=== PATIENT | female | born 1995 ===

== ENCOUNTER 2024-02-21 20:07 | Inpatient (IN) ==
[2024-02-21 21:48] LABS: Hematocrit (blood only) 38.6 % (37.0-47.0); Hemoglobin 12.4 g/dl (12.0-16.0); Mean Corpuscular Hemoglobin 26.1 pg (25.0-34.0); Mean Corpuscular Hgb Conc 32.1 g/dL (32.0-36.0); Mean Corpuscular Volume 81.3 fL (80.0-100.0); Platelet Count 294 K/uL (130-400); RDW Standard Deviation 69.9 fL (36.4-46.3); Red Blood Count 4.75 M/uL (4.20-5.40); White Blood Count 11.75 K/ul (4.8-10.8)
[2024-02-21] MEDS: OXYTOCIN 30 UNITS/NSS 30 UNITS/500 ML BAG IV PRN (21:48)
[2024-02-21] MEDS: miSOPROStoL 200 MCG TAB PR ONE (22:16)
[2024-02-21] MEDS ORDERED: oxyCODONE/ACETAMINOPHEN 5mg/325mg TAB PO PRN (22:19)
[2024-02-21] MEDS ORDERED: HYDROCORTISONE ACETATE 25 MG SUPP PR PRN (22:19)
[2024-02-21] MEDS ORDERED: OXYTOCIN 30 UNITS/NSS 30 UNITS/500 ML BAG IV PRN (22:19)
--- NOTE | 2024-02-21 22:23 | Delivery Summary ---
Vaginal Delivery Summary Date of Service February 21, 2024 Vaginal Delivery Summary Patient is a 4 para 2. Admitted in active labor at 39 weeks 3 days gestation. On arrival to the maternity floor she was 8 cm dilated. Pushed out a live infant via direct occiput anterior position over an intact perineum. With IV Pitocin running the placenta was removed intact. Placenta was noted to be meconium stained. We used a pudendal block in order to repair a second- degree laceration. 2-0 Vicryl was used to approximate the vaginal mucosa out and to beyond the hymenal ring. A deep suture 2-0 Vicryl was used approximate the bulbocavernosus muscle. A separate deep sutures used approximate the perineal body. A running subcuticular sutures used approximate the perineal skin edges. Following this sponges were removed from the vagina. There was no hematoma palpable. 4 tablets of 200 mcg of Cytotec was placed rectally. There were no stitches through the rectum. Calculated blood loss was 100 mL.
[2024-02-21] MEDS: IBUPROFEN 600 MG TAB PO PRN (22:53)
[2024-02-21] MEDS: ACETAMINOPHEN 325 MG TAB PO PRN (22:53)
[2024-02-21] MEDS: DIPHTHER/TETAN/PERTUS Vaccine (Tdap, Adol/Adult) 0.5mL IM ONE (23:39)
[2024-02-21] MEDS: LIDOCAINE 1% LOCAL 20 ML VIAL INFIL PRN (23:39)
[2024-02-22] MEDS: BENZOCAINE 20% SPRY 85 APPLN/85 GM CAN EXT PRN (00:41)
[2024-02-22 00:46] VITALS: RESP 18
--- OUTSIDE RECORDS SUMMARY | 2024-02-22 02:28 | External Medical Summary | Summary of Care ---
Author Name Unknown Organization [facility] Address [address] [place] [address] Phone [phone] Care Team Providers Care Retail Loss Prevention Specialist Name Role Phone Natalia Guardado MD Primary Care Provider [phone] Encounter Details Date Type Department Care Team (Late st Contact Info) Description 02/21/2024 Telephone Gynecology/Obstetrics [facility] [address] [place] [address] Lele Medrano MD [address] [facility] [place] [address] Allergies No known active allergiesdocumented as of this encounter (statuses as of 02/21/2024) Medications [facility] Gummy 0.4-113.5 MG Oral Tablet Chewable Take 1 Tablet by mouth in the morning. Active Breast PumpIndications: Encounter for supervision of other normal in third trimester For lactating mother to breastfeed. 1 Each Active documented as of this encounter (statuses as of 02/21/2024) Active Problems Problem Noted Date Diagnosed Date Iron deficiency anemia 01/13/2024 Supervision of other normal , antepartu m 12/27/2023 Overview (12/27/2023): Transfer of care at 30 weeks Antepartum anemia complicating 024 Overview (12/27/2023): Third tri labs showed Hgb 9.0 Low ferritin, elevated TIBC No history of sickle cell. Sickle cell screen negative. Pt tolerated PO iron in past. Referral to IV iron. Mass of right axilla 12/27/2023 Overview (12/27/2023): Not new. Suspect accessory mammary tissue. Ultrasound ordered. Estimated Date of Delivery Comme nts Yes 02/25/2024 Based on last me nstrual period of 05/21/2023 documented as of this encounter (statuses as of 02/21/2024) Social History Tobacco Use Types Packs/Day Years Used Date Smoking Tobacco: Never Smokeless Tobacco: Never Alcohol Use Standard Drinks/Week Comments Not Currently 0 (1 standard drink = 0.6 oz pur e alcohol) socially PHQ-2 Answer Date Recorded PHQ Adult Total Score 0 11/30/2023 Hunger Vital Sign Answer Date Recorded Within the past 12 months, y ou worried that your food would run out before you got the money to buy more. Never true 11/30/19 24 Within the past 12 months, t he food you bought just didn't last and you didn't have money to get more. Never true 11/30/2023 Childcare Answer Date Recorded Do you feel overwhelmed with taking care of a child, family member or friend? No 11/30/2023 Does your family need help f inding childcare? (Household - for ages 0-17 years) Not on file 11/30/2023 Clothing Answer Date Recorded Have you been unable to get clothing when it was really needed? No 11/30/2023 Is your family able to get c lothes or diapers when needed? (Household - for ages 0-17 years) Not on file 11/30/2023 Personal Safety Answer Date Recorded Do you feel unsafe or have concerns for your saf ety? No 11/30/2023 Do you have concerns for you r family's safety? (Household - for ages 0-17 years) Not on file 11/30/2023 Utilities Answer Date Recorded Do you have trouble paying y our heating, water, or electric bill? No 11/30/2023 Is your family able to pay t he heat, water, or electric bill? (Household - for ages 0-17 years) Not on file 11/30/2023 Does your family have access to good internet? (Household - for ages 0-17 years) Not on file 11/30/2023 Employment Status Answer Date Recorded Are you unemployed or without regular income? No 11/30/2023 Does the household have a re gular source of income? (Household - for ages 0-17 years) Not on file 11/30/2023 Social Connections Answer Date Recorded How often do you feel lonely or isolated from th ose around you? Never 11/30/2023 Financial Resource Strain Answer Date R ecorded Do you have any trouble payi ng for your medications, or do you think you might in the future? No 11/30/2023 Does your family have troubl e paying for medicine? (Household - for ages 0-17 years) Not on file 11/30/2023 Transportation Needs Answer Date Record ed Do you have trouble getting a ride to medical visits or work? (Adult - for ages 18 years and over) Not on file 11/30/2023 Does your family have a hard time getting a ride to doctors visits? (Household - for ages 0-17 years) Not on file 11/30/2023 Has lack of transportation k ept you from medical appointments, meetings, work, or from getting things needed for daily living? Check all that apply. No 11/30/2023 Do you (or your family) have trouble finding or paying for a ride (transportation)? (Household - for ages 0-17 years) Not on file 11/30/2023 Housing Stability Answer Date Recorded Do you currently live in a s helter or have no steady place to sleep at night? No 11/30/2023 Do you think you are at risk of becoming homeless? (Adult - for ages 18 years and over) Not on file 11/30/2023 Does your family worry about paying for your home or becoming homeless? (Household - for ages 0-17 years) Not on file 1 Are you homeless or worried that you might be in the future? No 11/30/2023 Are you (or your family) khalida eless or worried that you might be in the future? (Household - for ages 0-17 years) Not on file Food Insecurity Answer Date Recorded Do you need food for this week? No 11/30/2023 Are you able to get enough f ood for your family? (Household - for ages 0-17 years) Not on file 11/30/2023 Does your family need food t his week? (Household - for ages 0-17 years) Not on file 11/30/2023 Do you always have enough fo od for your family? (Household - for ages 0-17 years) Not on file 11/30/2023 Estimated Date of Delivery Comme nts Yes 02/25/2024 Based on last me nstrual period of 05/21/2023 Sex and Gender Information Value Date Recorded Sex Assigned at Female 11/30/2023 4:30 PM EDT Legal Sex Female 12:09 PM EDT Gender Identity Female 11/30/2023 4:30 PM EDT Sexual Orientation Straight 11/30/2023 4: 30 PM EDT documented as of this encounter Miscellaneous Notes * Telephone Encounter - Josephine Gregory LPN - 02/21/2024 8:44 AM EST Pt calling in 39w3d stating she had a gush of fluid yesterday around 7:45pm and has been leaking since. She states she did not call iron melter provider as she could not find the number. She feels contractions are inconsistent. + movement. Advised would review with iron melter provider but they would likely want her to go to L&D. Pt has office visit today at 11:15am. Page sent to Dr. Medrano who advised pt to go to L&D. Pt aware and will head that way. I also made L&D aware that pt is coming. documented in this encounter Plan of Treatment Health Maintenance Due Date Last Done Comments HIV Screening 04/29/2010 Hepatitis C Screening 04/29/2013 DTap/Tdap Vaccines (1 - Tdap) 04/29/2014 Hepatitis B Vaccine (1 of 3 - 19+ 3-dose series) 04/29/2014 Pap Smear 04/29/2016 COVID-19 Vaccine (2023-2 5 season) 2023 Influenza Vaccine (FLU shot) (#1) 2023 01/02/2017, 01/05/2016 Depression Screening 11/29/2024 11/30/2023 MENINGOCOCCAL (MENACTRA/MENVEO) Aged Out 05/24/2015 No longer eligible b ased on patient's age to complete this topic HPV (Gardasil) Vaccine Aged Out No lo nger eligible based on patient's age to complete this topic Pneumococcal Vaccine: Pediatrics (0 to 5 Years) and At-Risk Patients (6 to 64 Years) Aged Out No longer eligible b ased on patient's age to complete this topic documented as of this encounter Goals Goal Patient Goal Type Associated Problems Recent Progress Patient-Stated? Author Reminders Care Plan OB Reminders No [place], Provider documented as of this encounter Medical Devices Not on filedocumented as of this encounter Additional Health Concerns Active Problems Noted Date Diagnosed Date OB Reminders 12/01/2023 documented as of this encounter Care Teams Retail Loss Prevention Specialist Relationship Specialty Start Date End Date Natalia Guardado MD [address] [place] [address] PCP - General Family Medicine 11/30/23 documented as of this encounter
--- OUTSIDE RECORDS SUMMARY | 2024-02-22 02:28 | External Medical Summary | Summary of Care ---
Author Name Unknown Organization [facility] Address [address] [place] [address] Phone [phone] Care Team Providers Care Vice President Biostatistics Name Role Phone Natalia Guardado MD Primary Care Provider [phone] Reason for Visit * Reason Comments Anemia Follow-Up Encounter Details Date Type Department Care Team (Late st Contact Info) Description 02/15/2024 9:30 AM [facility] Pharmacy Pharmacy, [place] [address] [place] [address] Clinic, Anemia [address] [place] [address] Iron deficiency anemia, unspecified iron deficiency anemia type* Allergies No known active allergiesdocumented as of this encounter (statuses as of 02/16/2024) Medications [facility] Gummy 0.4-113.5 MG Oral Tablet Chewable Take 1 Tablet by mouth in the morning. Active Breast PumpIndications: Encounter for supervision of other normal in third trimester For lactating mother to breastfeed. 1 Each Active documented as of this encounter (statuses as of 02/16/2024) Active Problems Problem Noted Date Diagnosed Date [...] as of this encounter (statuses as of 02/16/2024) Social History Tobacco Use Types Packs/Day Years [...] PM EDT documented as of this encounter Progress Notes * Yulissa Hernandez RPh - 02/16/2024 8:36 AM EST Patient Phone Numbers Called patient to review labs from 02/14/24. Spoke with patient. GA: 38w5d Estimated Date of Delivery: 02/25/24 Hgb: 11.5 g/dL TSAT: 19 % Ferritin: 125 ng/mL B12: 474 pg/mL FA: 13.5 ng/mL Patient is s/p Infed 1g x1 on 01/19/24. Hgb is within target range for the 3rd trimester. Iron studies within target range. Patient reportstolerating IV iron without issue. Fatigue is still present, but pica has subsided. Plan: No anemia pharmacological intervention at this time. Given adequacy of anemia labs, as well as proximity to delivery, Anemia Clinic will sign off at this time. Please re-refer if needed. Thank you for involving us in this patient's care. Yulissa Hernandez, PharmD Clinical Pharmacist - Respiratory Practitioner [facility] (P: [phone]) 02/16/2024 8:38 AM documented in this encounter Plan of Treatment Upcoming Encounters Date Type Department Care Team (Late st Contact Info) Description 02/21/2024 11:15 AM EST Office Visit Gynecology/Obstetrics [facility] [address] [place] [address] Becky Patel CRNP [address] [place] [address] Health Maintenance Due Date Last Done Comments HIV Screening 04/29/2010 Hepatitis C Screening 04/29/2013 DTap/Tdap Vaccines (1 - Tdap) 04/29/2014 Hepatitis B Vaccine (1 of 3 - 19+ 3-dose series) 04/29/2014 Pap Smear 04/29/2016 COVID-19 Vaccine ( - 2023-2 5 season) 2023 Influenza Vaccine (FLU shot) [...] Author Reminders Care Plan OB Reminders No Stevenson Jones documented as of this encounter Medical Devices Not on filedocumented as of this encounter Visit Diagnoses Diagnosis Iron deficiency anemia, unspecified iron deficiency anemia type- Primary documented in this encounter Additional Health Concerns Active Problems Noted Date Diagnosed Date OB Reminders 12/01/2023 documented as of this encounter Care Teams Vice President Biostatistics Relationship Specialty Start Date End Date Natalia Guardado MD [address] [place] [address] PCP - General Family Medicine 11/30/23 documented as of this encounter
[2024-02-22] MEDS: ACETAMINOPHEN W/CODEINE #3 1 TAB PO PRN (02:29)
--- OUTSIDE RECORDS SUMMARY | 2024-02-22 02:29 | External Medical Summary ---
Author Name Unknown Address Unknown Organization [id number]:LABORATORY [facility] - [address] [place] [address] Laboratory Report Ordering Provider Test Date Status LIZZIE ASH 02/14/2024 10:43:33 Final Observation Date Value Abnormality Reference (Units ) Status Folic Acid 02/14/2024 10:43:33 13.5 >4.5 (ng/ mL) Final Performing Location LABORATORY [facility] - [address] [place] [address]
--- OUTSIDE RECORDS SUMMARY | 2024-02-22 02:29 | External Medical Summary ---
Author Name Unknown Address Unknown Organization [id number]:LABORATORY [facility] - [address] [place] [address] Laboratory Report Ordering Provider Test Date Status LIZZIE ASH 02/14/2024 10:43:33 Final Observation Date Value Abnormality Reference (Units ) Status Retic, % (auto) 02/14/2024 10:43:33 3.97 Above high normal 0.80-1.90 (%) Final Reticulocytes, Absolute 02/14/2024 10:43:33 175.1 Above high normal 31.3-100.1 (K/uL) Final Reticulocyte fraction, immature 02/14/2024 10:43:33 27.3 Above high normal 2.5-20.6 (%) Final Reticulocyte HGB 02/14/2024 10:43:33 31.6 29.7-37.4 (pg) Final Performing Location LABORATORY [facility] - [address] [place] [address]
--- OUTSIDE RECORDS SUMMARY | 2024-02-22 02:29 | External Medical Summary | Summary of Care ---
Author Name Unknown Organization [facility] Address [address] [place] [address] Phone [phone] Care Team Providers Care Assistant Grocery Name Role Phone Natalia Guardado MD Primary Care Provider [phone] Reason for Visit * Reason Comments Return Visit Encounter Details Date Type Department Care Team (Late st Contact Info) Description 02/07/2024 9:15 AM EST Office Visit Gynecology/Obstetric s [facility] [address] [place] [address] Lynn Pa PA-C [address] [facility] [place] [address] Supervision of other normal , antepartum*; Antepartum anemia complicating ; Mass of right axilla Allergies No known active allergiesdocumented as of this encounter (statuses as of 02/07/2024) Medications [facility] Gummy 0.4-113.5 MG Oral Tablet Chewable Take 1 Tablet by mouth in the morning. Active Breast PumpIndications: Encounter for supervision of other normal in third trimester For lactating mother to breastfeed. 1 Each Active documented as of this encounter (statuses as of 02/07/2024) Active Problems Problem Noted Date Diagnosed Date [...] as of this encounter (statuses as of 02/07/2024) Social History Tobacco Use Types Packs/Day Years [...] 11/30/2023 Does the household have a re lar source of income? (Household - for ages [...] PM EDT documented as of this encounter Last Filed Vital Signs Vital Sign Reading Time Taken Comments Blood Pressure 112/72 02/07/2024 9:18 AM EST Pulse - - Temperature - - Respiratory Rate - - Oxygen Saturation - - Inhaled Oxygen Concentration - - Weight 93.4 kg (206 lb) 02/07/2024 9:18 AM EST Height - - Body Mass Index 36.49 01/05/2024 4:28 PM EST documented in this encounter Progress Notes * Lynn Pa PA-C - 02/07/2024 9:23 AM EST 37w3d S/p IV iron. Still feels tired, but has noticed less [place] cravings of ice and dirt. Increased discharge over last several weeks. No gush of fluid. Not soaking pad or need to wear pad.Feels just like increased moisture. Changes underwear d/t moisture. [place] irritated and itching at times she states feels like yeast infection d/t moisture at times. Vaginosis collected. Contractions a few days ago. Have since stopped. Desires cervical check. Due for GBS. Labor precautions. Lathe Tender Documentation Provider requested airport traffic controller. Name of airport traffic controller: Marjan Alexis MA RTC in 1 week Lynn Pa PA-C * Marjan Alexis CMA - 02/07/2024 9:18 AM EST 37w3d GBS swab today documented in this encounter Plan of Treatment Upcoming Encounters Date Type Department Care Team (Late st Contact Info) Description 02/08/2024 2:30 PM EST Pharmacy Pharmacy, [address] [place] [address] Clinic, [place] [address] [place] [address] Pending Results Name Type Priority Associated Diagnoses Date /Time GROUP B STREP CULTURE/PCR Lab Routine Supervision of other normal , antepartum 02/07/2024 9:44 AM EST VAGINOSIS PANEL, PCR Lab Routine Supervision of other normal , antepartum 02/07/2024 9:44 AM EST Scheduled Orders Name Type Priority Associated Diagnoses Orde r Schedule GROUP B STREP CULTURE/PCR Lab Routine Supervision of other normal , antepartum Expected: 02/07/2024, Expires: 02/06/2025 VAGINOSIS PANEL, PCR Lab Routine Supervision of other normal , antepartum Expected: 02/07/2024, Expires: 02/06/2025 Health Maintenance Due Date Last Done Comments [...] Author Reminders Care Plan OB Reminders No Mychart, Provider documented as of this encounter Medical Devices Not on filedocumented as of this encounter Visit Diagnoses Diagnosis Supervision of other normal , antepartum- Primary Antepartum anemia complicating Anemia, antepartum Mass of right axilla documented in this encounter Additional Health Concerns Active Problems Noted Date Diagnosed Date OB Reminders 12/01/2023 documented as of this encounter Care Teams Assistant Grocery Relationship Specialty Start Date End Date Natalia Guardado MD [address] [place] [address] PCP - General Family Medicine 11/30/23 documented as of this encounter
--- OUTSIDE RECORDS SUMMARY | 2024-02-22 02:29 | External Medical Summary | Summary of Care ---
Author Name Unknown Organization [facility] Address [address] [place] [address] Phone [phone] Care Team Providers Care Bottom Bleacher Name Role Phone Natalia Guardado MD Primary Care Provider [phone] Reason for Visit * Reason Comments Status Check Encounter Details Date Type Department Care Team (Late st Contact Info) Description 02/08/2024 2:30 PM [facility] Pharmacy Pharmacy, [place] [address], [place] [id number] Clinic, Anemia [address] [place] [address] Iron deficiency anemia, unspecified iron deficiency anemia type* Allergies No known active allergiesdocumented as of this encounter (statuses as of 02/08/2024) Medications [facility] Gummy 0.4-113.5 MG Oral Tablet Chewable Take 1 Tablet by mouth in the morning. Active Breast PumpIndications: Encounter for supervision of other normal in third trimester For lactating mother to breastfeed. 1 Each Active documented as of this encounter (statuses as of 02/08/2024) Active Problems Problem Noted Date Diagnosed Date [...] as of this encounter (statuses as of 02/08/2024) Social History Tobacco Use Types Packs/Day Years [...] as of this encounter Progress Notes * Guillermina Proctor RPh - 02/08/2024 1:06 PM EST CBCd, ferritin, iron screen, retic panel, B12, FA ordered for 02/14/24. Guillermina Proctor, PharmD, [facility] Clinical Pharmacist [facility] [address] Anemia Clinic (P: [phone]) 02/08/2024 1:07 PM * Gwendolyn Benton CPhT - 02/08/2024 10:06 AM EST Patient Phone Numbers Call to patient to schedule labs. Spoke with patient who verbalized understanding. Patient received Infed on 01/18. Labs due on 02/13. GA: 37w4d Estimated Date of Delivery: 02/25/24 Pharmacist - please place appropriate lab orders. Thank you, Gwendolyn Benton CPhT Dermatology Sales Representative II [facility] 02/08/2024,10:06 AM documented in this encounter Plan of Treatment Upcoming Encounters Date Type Department Care Team (Late st Contact Info) Description 02/14/2024 11:15 AM EST Office Visit Gynecology/Obstetrics [facility] [address] [place] [address] Nilson Lucero MD [address] [place] [address] 02/15/2024 9:30 AM EST Pharmacy Pharmacy, [place] [address] [place] [address] Clinic, Anemia [address] [place] [address] Scheduled Orders Name Type Priority Associated Diagnoses Orde r Schedule CBC WITH WBC DIFFERENTIAL Lab Routine Iron deficiency anemia, unspecified iron deficiency anemia type Expected: 02/14/2024, Expires: 01/08/2025 IRON SCREEN, INCLUDING TIBC Lab Routine Iron deficiency anemia, unspecified iron deficiency anemia type Expected: 02/14/2024, Expires: 01/08/2025 FERRITIN Lab Routine Iron deficiency anemia, unspecified iron deficiency anemia type Expected: 02/14/2024, Expires: 01/08/2025 RETICULOCYTE PANEL Lab Routine Iron deficiency anemia, unspecified iron deficiency anemia type Expected: 02/14/2024, Expires: 01/08/2025 FOLIC ACID Lab Routine Iron deficiency anemia, unspecified iron deficiency anemia type Expected: 02/14/2024, Expires: 01/08/2025 VITAMIN B12 Lab Routine Iron deficiency anemia, unspecified iron deficiency anemia type Expected: 02/14/2024, Expires: 01/08/2025 Health Maintenance Due Date Last Done Comments [...] documented as of this encounter Care Teams Bottom Bleacher Relationship Specialty Start Date End Date Natalia Guardado MD [address] [place] [address] PCP - General Family Medicine 11/30/23 documented as of this encounter
--- OUTSIDE RECORDS SUMMARY | 2024-02-22 02:29 | External Medical Summary ---
Author Name Unknown Address Unknown Organization [id number]:LABORATORY [facility] [address] - [address] [place] [address] Laboratory Report Ordering Provider Test Date Status LIZZIE ASH 02/14/2024 10:43:33 Final Observation Date Value Abnormality Reference (Units ) Status WBC, Total 02/14/2024 10:43:33 9.47 4.00-10.8 0 (K/uL) Final RBC 02/14/2024 10:43:33 4.37 3.85-5.15 (M/uL) Final Hemoglobin 02/14/2024 10:43:33 11.5 Below low normal 12 .0-15.3 (g/dL) Final HCT 02/14/2024 10:43:33 36.2 36.0-45.2 (%) Final MCV 02/14/2024 10:43:33 82.8 81.5-97.5 (fL) Final MCH 02/14/2024 10:43:33 26.3 27.0-34.0 (pg) Final MCHC 02/14/2024 10:43:33 31.8 32.0-36.0 (g/dL) Final RDW 02/14/2024 10:43:33 25.3 11.5-15.5 (%) Final Platelets 02/14/2024 10:43:33 383 140-400 (K /uL) Final MPV 02/14/2024 10:43:33 10.0 6.6-11.1 ( fL) Final Performing Location LABORATORY [facility] [address] 0 - [address] [place] [id number]
--- OUTSIDE RECORDS SUMMARY | 2024-02-22 02:29 | External Medical Summary ---
Author Name Unknown Address Unknown Organization K0G:LABORATORY [facility] [address] - [address] [place] [address] Laboratory Report Ordering Provider Test Date Status LIZZIE ASH 02/14/2024 10:43:33 Final Observation Date Value Abnormality Reference (Units ) Status SYNC LEUKOCYTES IN BLOOD BY AUTOMATED COUNT 02/14/2024 10:43:33 9.47 4.00-10.80 (K/uL) Final Segs 02/14/2024 10:43:33 75.7 Above high normal 40.0-75.0 (%) Final Lymphs % 02/14/2024 10:43:33 14.8 Below low normal 18.0-42.0 (%) Final Monos 02/14/2024 10:43:33 8.7 1.0-11.0 (%) Final Eosinophils 02/14/2024 10:43:33 0.5 0.0-6.0 (%) Final Basos 02/14/2024 10:43:33 0.3 0.0-2.0 (%) Final Absolute Segs 02/14/2024 10:43:33 7.17 1.80-7.70 (K/uL) Final Lymphs, absolute 02/14/2024 10:43:33 1.40 1.00-4.80 (K/ul) Final Monos, Abs 02/14/2024 10:43:33 0.82 0.00-1.10 (K/uL) Final Eos, Abs 02/14/2024 10:43:33 0.05 0.00-0.70 (K/uL) Final Basos, Abs 02/14/2024 10:43:33 0.03 0.00-0.20 (K/uL) Final Performing Location LABORATORY [facility] [address] - [address] [place] [address]
--- OUTSIDE RECORDS SUMMARY | 2024-02-22 02:29 | External Medical Summary ---
Author Name Unknown Address Unknown Organization K0G:LABORATORY [facility] - [address] [place] [id number] Laboratory Report Ordering Provider Test Date Status LIZZEI ASH 02/14/2024 10:43:33 Final Observation Date Value Abnormality Reference (Units ) Status Nucleated erythrocytes/100 leukocytes [Ratio] in Blood by Automated count 02/14/2024 10:43:33 Final Performing Location LABORATORY [facility] [address] - [address] [place] [id number]
--- OUTSIDE RECORDS SUMMARY | 2024-02-22 02:29 | External Medical Summary | Summary of Care ---
Author Name Unknown Organization [facility] Address [address] [place] [address] Phone [phone] Care Team Providers Care Yard Loader Operator Name Role Phone Natalia Guardado MD Primary Care Provider [phone] Reason for Visit * Reason Comments Return Visit Encounter Details Date Type Department Care Team (Late st Contact Info) Description 02/14/2024 11:15 AM EST Office Visit Gynecology/Obstetric [facility] [address] [place] [address] Nilson Lucero MD [address] [place] [address] Supervision of other normal , antepartum*; Antepartum anemia complicating ; Mass of right axilla Allergies No known active allergiesdocumented as of this encounter (statuses as of 02/14/2024) Medications [facility] Gummy 0.4-113.5 MG Oral Tablet Chewable Take 1 Tablet by mouth in the morning. Active Breast PumpIndications: Encounter for supervision of other normal in third trimester For lactating mother to breastfeed. 1 Each Active documented as of this encounter (statuses as of 02/14/2024) Active Problems Problem Noted Date Diagnosed Date [...] as of this encounter (statuses as of 02/14/2024) Social History Tobacco Use Types Packs/Day Years [...] Sign Reading Time Taken Comments Blood Pressure 124/84 02/14/2024 10:54 AM EST Pulse - - Temperature - - Respiratory Rate - - Oxygen Saturation - - Inhaled Oxygen Concentration - - Weight 94.3 kg (208 lb) 02/14/2024 10:54 AM EST Height 160 cm (5' 3") 02/14/2024 10:54 AM EST Body Mass Index 36.85 02/14/2024 10:54 AM EST documented in this encounter Progress Notes * Nilson Lucero MD - 02/14/2024 11:13 AM EST Pt doing well No complaints RTC 1 weeks documented in this encounter Nursing Notes * Sakina Denis LPN - 02/14/2024 10:55 AM EST 38w3d Swelling and itching in BL hands. Would like to schedule 41 week iol today. documented in this encounter Plan of Treatment Upcoming Encounters Date Type Department Care Team (Late st Contact Info) Description 02/15/2024 9:30 AM EST Pharmacy Pharmacy, [place] [address] [place] [address] Clinic, [place] [address] [place] [address] 02/21/2024 11:15 AM EST Office Visit Gynecology/Obstetrics [facility] [address] [place] [address] Becky Patel CRNP [address] [place] [address] Scheduled Orders Name Type Priority Associated Diagnoses Orde r Schedule BILE ACIDS, FRACTIONATED AND TOTAL Lab Routine Supervision of other normal , antepartum Antepartum anemia complicating Mass of right axilla Expected: 02/14/2024, Expires: 02/13/2025 Health Maintenance Due Date Last Done Comments [...] documented as of this encounter Care Teams Yard Loader Operator Relationship Specialty Start Date End Date Natalia Guardado MD [address] [place] [address] PCP - General Family Medicine 11/30/23 documented as of this encounter
--- OUTSIDE RECORDS SUMMARY | 2024-02-22 02:29 | External Medical Summary | Summary of Care ---
Author Name Unknown Organization [facility] Address [address] [place] [address] Phone [phone] Care Team Providers Care Cath Lab Name Role Phone Natalia Guardado MD Primary Care Provider [phone] Reason for Visit * Reason Comments Outpatient Testing Encounter Details Date Type Department Care Team (Late st Contact Info) Description 02/14/2024 10:40 AM EST Laboratory Laboratory, [facility] [address] [place] [address] [facility] [address] [place] [address] Iron deficiency anemia, unspecified iron deficiency anemia type Allergies No known active allergiesdocumented as of [...] PM EDT documented as of this encounter Plan of Treatment Upcoming Encounters Date Type Department Care Team (Late st Contact Info) Description 02/14/2024 11:15 AM EST Office Visit Gynecology/Obstetric [facility] [address] [place] [address] Nilson Lucero MD [address] [place] [address] Supervision of other normal , antepartum*; Antepartum anemia complicating ; Mass of right axilla 02/15/2024 9:30 AM EST Pharmacy Pharmacy, [place] [address] [facility] [place] [place] [address] Clinic, [place] [address] [place], [place] [id number] Pending Results Name Type Priority Associated Diagnoses Date /Time IRON SCREEN, INCLUDING TIBC Lab Routine Iron deficiency anemia, unspecified iron deficiency anemia type 02/14/2024 10:43 AM EST FERRITIN Lab Routine Iron deficiency anemia, unspecified iron deficiency anemia type 02/14/2024 10:43 AM EST RETICULOCYTE PANEL Lab Routine Iron deficiency anemia, unspecified iron deficiency anemia type 02/14/2024 10:43 AM EST FOLIC ACID Lab Routine Iron deficiency anemia, unspecified iron deficiency anemia type 02/14/2024 10:43 AM EST VITAMIN B12 Lab Routine Iron deficiency anemia, unspecified iron deficiency anemia type 02/14/2024 10:43 AM EST Health Maintenance Due Date Last Done Comments [...] Not on filedocumented as of this encounter Procedures Procedure Name Priority Date/Time Associated Diagnosis Comments DIFFERENTIAL, AUTOMATED Routine 02/14/2024 10:43 AM EST Iron deficiency anemia, unspecified iron deficiency anemia type CBC Routine 02/14/2024 10:43 AM EST Iron deficiency anemia, unspecified iron deficiency anemia type CBC Routine 02/14/2024 10:43 AM EST Iron deficiency anemia, unspecified iron deficiency anemia type DIFFERENTIAL, TECHNOLOGIST REVIEW Routine 02/14/2024 10:43 AM EST Iron deficiency anemia, unspecified iron deficiency anemia type documented in this encounter Results * DIFFERENTIAL, TECHNOLOGIST REVIEW (02/14/2024 10:43 AM EST) nRBCs 02/14/2024 10:58 AM EST [facility] [place] [facility] Blood Venous blood specimen / Unknown Venipuncture / Unknown 02/14/2024 10:43 AM EST 02/14/2024 10:43 AM EST us Guillermina Proctor [facility] LAB BLOOD ORDERABLES Final Res ult [facility] [place] [facility] [address] [place] [address] * (ABNORMAL) DIFFERENTIAL, AUTOMATED (02/14/2024 10:43 AM EST) Pathologist [facility] WBC 9.47 4.00 - 10.80 K/uL 02/14/2024 10:58 AM EST [facility] [place] [facility]10 Neutrophils % 75.7(H) 40.0 - 75.0 % 02/14/2024 10:58 AM EST [facility] [place] [facility] Lymphocytes % 14.8(L) 18.0 - 42.0 % 02/14/2024 10:58 AM EST [facility] [place] [facility]10 Monocytes % 8.7 1.0 - 11.0 % 02/14/2024 10:58 AM EST [facility] [place] [facility] Eosinophils % 0.5 0.0 - 6.0 % 02/14/2024 10:58 AM EST [facility] [place] [facility]10 Basophils % 0.3 0.0 - 2.0 % 02/14/2024 10:58 AM EST [facility] [place] [facility] Absolute Neutrophils 7.17 1.80 - 7.70 K/uL 02/14/2024 10:58 AM EST [facility] [place] [facility]10 Absolute Lymphocytes 1.40 1.00 - 4.80 K/ul 02/14/2024 10:58 AM EST [facility] [place] [facility] Absolute Monocytes 0.82 0.00 - 1.10 K/uL 02/14/2024 10:58 AM EST [facility] [place] [facility]10 Absolute Eosinophils 0.05 0.00 - 0.70 K/uL 02/14/2024 10:58 AM EST [facility] [place] [facility]10 Absolute Basophils 0.03 0.00 - 0.20 K/uL 02/14/2024 10:58 AM EST [facility] [place] [facility]10 Blood Venous blood specimen / Unknown Venipuncture / Unknown 02/14/2024 10:43 AM EST 02/14/2024 10:43 AM EST us Guillermina Proctor [facility] LAB BLOOD ORDERABLES Final Res ult [facility] [place] [facility] [address] [place] [address] * (ABNORMAL) CBC (02/14/2024 10:43 AM EST) WBC 9.47 4.00 - 10.80 K/uL 02/14/2024 10:58 AM EST [facility] [place] [facility]10 RBC 4.37 3.85 - 5.15 M/uL 02/14/2024 10:58 AM EST [facility] [place] [facility]10 HGB 11.5(L) 12.0 - 15.3 g/dL 02/14/2024 10:58 AM EST [facility] [place] [facility] HCT 36.2 36.0 - 45.2 % 02/14/2024 10:58 AM EST [facility] [place] [facility] MCV 82.8 81.5 - 97.5 fL 02/14/2024 10:58 AM EST [facility] [place] [facility] MCH 26.3 27.0 - 34.0 pg 02/14/2024 10:58 AM EST [facility] [place] [facility]10 MCHC 31.8 32.0 - 36.0 g/dL 02/14/2024 10:58 AM EST [facility] [place] [facility]10 RDW 25.3 11.5 - 15.5 % 02/14/2024 10:58 AM EST [facility] [place] [facility]10 PLT 383 140 - 400 K/uL 02/14/2024 10:58 AM EST [facility] [place] [facility] MPV 10.0 6.6 - 11.1 fL 02/14/2024 10:58 AM EST [facility] [place] [facility]10 Blood Venous blood specimen / Unknown Venipuncture / Unknown 02/14/2024 10:43 AM EST 02/14/2024 10:43 AM EST us Guillermina Esthela [facility] LAB BLOOD ORDERABLES Final Res ult [facility] [place] [facility]10 [address] [facility] [place] [address] documented in this encounter Visit Diagnoses Diagnosis Supervision of other normal , antepartum- Primary Antepartum anemia complicating Anemia, antepartum Mass of right axilla Iron deficiency anemia, unspecified iron deficiency anemia type documented in this encounter Additional Health Concerns Active Problems Noted Date Diagnosed Date OB Reminders 12/01/2023 documented as of this encounter Care Teams Cath Lab Relationship Specialty Start Date End Date Natalia Guardado MD [address] [place] [address] PCP - General Family Medicine 11/30/23 documented as of this encounter
--- OUTSIDE RECORDS SUMMARY | 2024-02-22 02:29 | External Medical Summary | Summary of Care ---
Author Name Unknown Organization [facility] Address [address] [place] [address] Phone [phone] Care Team Providers Care Wood Pole Treater Name Role Phone Natalia Guardado MD Primary Care Provider [phone] Encounter Details Date Type Department Care Team (Late st Contact Info) Description 02/10/2024 Orders Only PATIENT PORTAL DO NOT DELETE THIS DEPT USED BY [place] [address] Allergies No known active allergiesdocumented as of this encounter (statuses as of 02/10/2024) Medications [facility] Gummy 0.4-113.5 MG Oral Tablet Chewable Take 1 Tablet by mouth in the morning. Active Breast PumpIndications: Encounter for supervision of other normal in third trimester For lactating mother to breastfeed. 1 Each Active documented as of this encounter (statuses as of 02/10/2024) Active Problems Problem Noted Date Diagnosed Date [...] as of this encounter (statuses as of 02/10/2024) Social History Tobacco Use Types Packs/Day Years [...] 02/14/2024 11:15 AM EST Office Visit Gynecology/Obstetrics [facility] [address] [place] [address] Nilson Lucero MD [address] [place] [address] 02/15/2024 9:30 AM EST Pharmacy Pharmacy, [place] [address] [place], [place] [id number] Clinic, [place] [address] [place] [address] Health Maintenance Due Date Last Done Comments [...] documented as of this encounter Care Teams Wood Pole Treater Relationship Specialty Start Date End Date Natalia Guardado MD [address] [facility] [address] PCP - General Family Medicine 11/30/23 documented as of this encounter
--- OUTSIDE RECORDS SUMMARY | 2024-02-22 02:29 | External Medical Summary ---
Author Name Unknown Address Unknown Organization K01:LABORATORY [facility] [place] - [address] [place] [address] Laboratory Report Ordering Provider Test Date Status LIZZIE ASH 02/14/2024 10:43:33 Final Observation Date Value Abnormality Reference (Units ) Status Iron 02/14/2024 10:43:33 96 33-151 (ug/dL) Final Iron-binding capacity 02/14/2024 10:43:33 495 Above high normal 250-425 (ug/dL) Final Transferrin Sat % 02/14/2024 10:43:33 19 15-55 (%) Final Performing Location LABORATORY [facility] - [address] [place] [address]
--- OUTSIDE RECORDS SUMMARY | 2024-02-22 02:29 | External Medical Summary ---
Author Name Unknown Address Unknown Organization K01:LABORATORY [facility] - [address] [place] [address] Laboratory Report Ordering Provider Test Date Status LIZZIE ASH 02/14/2024 10:43:33 Final Observation Date Value Abnormality Reference (Units ) Status Vitamin B12 02/14/2024 10:43:33 321 900-3978 (pg/mL) Final Performing Location LAB[facility]ATORY [facility] - [address] [place] [address]
--- OUTSIDE RECORDS SUMMARY | 2024-02-22 02:29 | External Medical Summary ---
Author Name Unknown Address Unknown Organization K01:[facility] [place] [address] [facility] [place] [address] Laboratory Report Ordering Provider Test Date Status LIZZIE ASH 02/14/2024 10:43:33 Final Observation Date Value Abnormality Reference (Units ) Status Ferritin 02/14/2024 10:43:33 125 13-150 (ng /mL) Final Performing Location [facility] [place] [address] [place] [address]
--- OUTSIDE RECORDS SUMMARY | 2024-02-22 02:30 | External Medical Summary | Summary of Care ---
Author Name Unknown Organization [facility] Address [address] [place] [address] Phone [phone] Care Team Providers Care Educational Assistant Name Role Phone Natalia Guardado MD Primary Care Provider [phone] Reason for Visit * Reason Onset Date Comments Appointment 01/12/2024 Iron infusion Encounter Details Date Type Department Care Team (Late st Contact Info) Description 01/12/2024 Telephone Hematology/Oncology Treatment, [place] [address] [place] [address] Services, Scheduling [address] [place] [address] Appointment (Iron infusion) Allergies No known active allergiesdocumented as of this encounter (statuses as of 01/13/2024) Medications [facility] Gummy 0.4-113.5 MG Oral Tablet Chewable Take 1 Tablet by mouth in the morning. Active Breast PumpIndications: Encounter for supervision of other normal in third trimester For lactating mother to breastfeed. 1 Each Active documented as of this encounter (statuses as of 01/13/2024) Active Problems Problem Noted Date Diagnosed Date Supervision of other normal , antepartu m [...] as of this encounter (statuses as of 01/13/2024) Social History Tobacco Use Types Packs/Day Years [...] encounter Miscellaneous Notes * Telephone Encounter - Bianca Marcelino OSA - 01/12/2024 4:11 PM EST Patient calling in to schedule iron infusion. documented in this encounter Plan of Treatment Upcoming Encounters Date Type Department Care Team (Late st Contact Info) Description 01/20/2024 10:00 AM EST Pharmacy Pharmacy, [place] [address] [place] [address] Clinic, [place] [address] [place] [address] 01/20/2024 1:30 PM EST Imaging Radiology [facility] [address] [place] [address] 01/20/2024 2:15 PM EST Office Visit Gynecology/Obstetrics [facility] [address] [place] [address] Becky Patel CRNP [address] [place] [address] Health Maintenance Due Date Last Done Comments HIV Screening 04/29/2010 Hepatitis C Screening 04/29/2013 DTap/Tdap Vaccines (1 - Tdap) 04/29/2014 Hepatitis B Vaccine (1 of 3 - 19+ 3-dose series) 04/29/2014 Pap Smear 04/29/2016 COVID-19 Vaccine (1 - 2023-2 5 season) 2023 Influenza Vaccine [...] Author Reminders Care Plan OB Reminders No Kristianhart, Provider documented as of this encounter Medical Devices Not on filedocumented as of this encounter Additional Health Concerns Active Problems Noted Date Diagnosed Date OB Reminders 12/01/2023 documented as of this encounter Care Teams Educational Assistant Relationship Specialty Start Date End Date Natalia Guardado MD [address] [facility] [place], [place] [address] PCP - General Family Medicine 11/30/23 documented as of this encounter
--- OUTSIDE RECORDS SUMMARY | 2024-02-22 02:30 | External Medical Summary | Summary of Care ---
Author Name Unknown Organization [facility] Address [address] [place] [address] Phone [phone] Care Team Providers Care Anesthesiology Teacher Name Role Phone Natalia Guardado MD Primary Care Provider [phone] Reason for Visit * Reason Onset Date Comments Appointment 01/12/2024 Iron infusion Other 01/12/2024 InFed Encounter Details Date Type Department Care Team (Late st Contact Info) Description 01/12/2024 Telephone Hematology/Oncology Treatment, [place] [address] [place] [address] Services, Scheduling [address] [place] [address] Appointment (Iron infusion); Other (InFed) Allergies No known active allergiesdocumented as of [...] encounter Miscellaneous Notes * Telephone Encounter - Hlai Carvalho OSA - 01/13/2024 4:12 PM EST Patient called to schedule her iron infusion ordered by Lynn Pa. She is aware that we are awaiting Lynn's signature and will call her to schedule. Please contact [facility] at [phone] to schedule. Thank you. * Telephone Encounter - Teri Pa LPN - 01/13/2024 1:11 PM EST Order received for InFed [place] [phone] No prior authorization required Awaiting provider signature before scheduling patient. Per Guillermina Pa PA-C preferred administration date is on or after 01/21/2024. * Telephone Encounter - Bianca Marcelino OSA - 01/12/2024 4:11 PM EST Patient calling in to schedule iron infusion. documented in this encounter Plan of Treatment Upcoming Encounters Date Type Department Care Team (Late st Contact Info) Description 01/20/2024 10:00 AM EST Pharmacy Pharmacy, [place] [address] [place] [address] Clinic, An[place] [address] [place] [address] 01/20/2024 1:30 PM EST Imaging Radiology [facility] [address] [place] [address] 01/20/2024 2:15 PM EST Office Visit Gynecology/Obstetrics [facility] [address] [place] [address] Becky Patel CRNP [address] [place] [address] Health Maintenance Due Date Last Done Comments [...] documented as of this encounter Care Teams Anesthesiology Teacher Relationship Specialty Start Date End Date Natalia Guardado MD [address] [place] [address] PCP - General Family Medicine 11/30/23 documented as of this encounter
--- OUTSIDE RECORDS SUMMARY | 2024-02-22 02:30 | External Medical Summary | Summary of Care ---
Author Name Unknown Organization [facility] Address [address] [place] [address] Phone [phone] Care Team Providers Care Power Plant Operations Manager Name Role Phone Natalia Guardado MD Primary Care Provider Encounter Details Date Type Department Care Team (Late st Contact Info) Description 01/12/2024 Orders Only Gynecology/Obstetrics [facility] [address] [place] [address] Lynn Pa PA-C [address] [place] [address] Iron deficiency anemia, unspecified iron deficiency anemia type* Allergies No known active allergiesdocumented as of this encounter (statuses as of 01/12/2024) Medications [facility] Gummy 0.4-113.5 MG Oral Tablet Chewable Take 1 Tablet by mouth in the morning. Active Breast PumpIndications: Encounter for supervision of other normal in third trimester For lactating mother to breastfeed. 1 Each Active documented as of this encounter (statuses as of 01/12/2024) Active Problems Problem Noted Date Diagnosed Date [...] as of this encounter (statuses as of 01/12/2024) Social History Tobacco Use Types Packs/Day Years [...] Team (Late st Contact Info) Description 01/12/2024 4:00 PM EST Pharmacy Pharmacy, [place] [address] [place] [address] Clinic, An[place] [address] [place] [address] Iron deficiency anemia, unspecified iron deficiency anemia type* 01/20/2024 10:00 AM EST Pharmacy Pharmacy, [place] [address] [place] [address] Clinic, An[place] [address] [place] [address] 01/20/2024 1:30 PM EST Imaging Radiology [facility] [address] [place] [address] 01/20/2024 2:15 PM EST Office Visit Gynecology/Obstetric s [facility] [address] [place] [address] Becky Patel CRNP [address] [facility] [place] [address] Health Maintenance Due Date Last Done Comments [...] anemia, unspecified iron deficiency anemia type- Primary Iron deficiency anemia, unspecified iron deficiency anemia type- Primary documented in this encounter Additional Health Concerns Active Problems Noted Date Diagnosed Date OB Reminders 12/01/2023 documented as of this encounter Care Teams Power Plant Operations Manager Relationship Specialty Start Date End Date Natalia Guardado MD [address] [place] [address] PCP - General Family Medicine 11/30/23 documented as of this encounter
--- OUTSIDE RECORDS SUMMARY | 2024-02-22 02:30 | External Medical Summary | Summary of Care ---
Author Name Unknown Organization [facility] Address [address] [place] [address] Phone [phone] Care Team Providers Care Tutoring Clinician Name Role Phone Natalia Guardado MD Primary Care Provider [phone] Reason for Visit * Reason Onset Date Comments Appointment 01/12/2024 Iron infusion Other 01/12/2024 InFed Encounter Details Date Type Department Care Team (Late st Contact Info) Description 01/12/2024 Telephone Hematology/Oncology Treatment, [place] [address] [place] [phone] Services, Scheduling [address] [place] [address] Appointment (Iron infusion); Other (InFed) Allergies No known active allergiesdocumented as of this encounter (statuses as of 01/17/2024) Medications [facility] Gummy 0.4-113.5 MG Oral Tablet Chewable Take 1 Tablet by mouth in the morning. Active Breast PumpIndications: Encounter for supervision of other normal in third trimester For lactating mother to breastfeed. 1 Each Active documented as of this encounter (statuses as of 01/17/2024) Active Problems Problem Noted Date Diagnosed Date [...] as of this encounter (statuses as of 01/17/2024) Social History Tobacco Use Types Packs/Day Years [...] encounter Miscellaneous Notes * Telephone Encounter - Sara Chau OSA - 01/17/2024 8:52 AM EST Pt is scheduled and is aware * Telephone Encounter - Meseret Hawk RN - 01/14/2024 3:59 PM EST [place] is signed. Scheduling: please call patient to schedule 3 hour appt "infed" (Lynn Pa). Thanks! * Telephone Encounter - Hali Carvalho OSA - 01/13/2024 4:12 PM EST Patient called to schedule her iron infusion ordered by Lynn Pa. She is aware that we are awaiting Lynn's signature and will call her to schedule. Please contact [facility] at [phone] to schedule. Thank you. * Telephone Encounter - Teri Pa LPN - 01/13/2024 1:11 PM EST Order received for InFed [place] [phone] No prior authorization required Awaiting provider signature before scheduling patient. Per Guillermina Pa PA-C preferred administration date is on or after 01/21/2024. * Telephone Encounter - Bianca Marcelino OSA - 01/12/2024 4:11 PM EST Patient calling in to schedule iron infusion. documented in this encounter Plan of Treatment Upcoming Encounters Date Type Department Care Team (Late st Contact Info) Description 01/19/2024 11:15 AM EST Hem/Onc Treatment Hematology/Oncology Treatment, [place] [address] [place] [address] Lisa, Chair [address] [place] [address] 01/20/2024 10:00 AM EST Pharmacy Pharmacy, [place] [address] [place] [address] Clinic, Anemia [address] [place] [address] 01/20/2024 1:30 PM EST Imaging [facility] [address] 01/20/2024 2:15 PM EST Office Visit Gynecology/Obstetrics [facility] [address] [facility] [place] [address] Becky Patel CRNP [address] [place] [address] Health Maintenance Due Date Last Done Comments [...] documented as of this encounter Care Teams Tutoring Clinician Relationship Specialty Start Date End Date Natalia Guardado MD [address] [place] [address] PCP - General Family Medicine 11/30/23 documented as of this encounter
--- OUTSIDE RECORDS SUMMARY | 2024-02-22 02:30 | External Medical Summary ---
Author Name Unknown Address Unknown Organization K01:LABORATORY C - [address] [facility] [address] Laboratory Report Ordering Provider Test Date Status KELSEA,DIGNA 02/07/2024 09:44:13 Final Observation Date Value Abnormality Reference (Units ) Status Bacterial vaginosis [Interpretation] in Vaginal fluid Qualitative 02/07/2024 09:44:13 Negative Negative Final Negative for Bacterial Vagin osis. Correlate results with other clinical findings. Katerin sp DNA [Presence] in Vaginal fluid by Probe 02/07/2024 09:44:13 Negative Negative Final No Katerin species group RNA detected. Correlate results with other clinical findings. Katerin glabrata RNA [Presen ce] in Vaginal fluid by NAKUL with probe detection 02/07/2024 09:44:13 Negative Negative Final No Katerin glabrata RNA dete cted. Correlate results with other clinical findings. Trichomonas vaginalis DNA [P resence] in Vaginal fluid by Probe 02/07/2024 09:44:13 Negative Negative Final No Trichomonas vaginalis RNA detected. Performing Location [facility] - [address] [facility] [address]
--- OUTSIDE RECORDS SUMMARY | 2024-02-22 02:30 | External Medical Summary | Summary of Care ---
Author Name Unknown Organization [facility] Address [address] [place] [address] Phone [phone] Care Team Providers Care Senior Security Architect Name Role Phone Natalia Guardado MD Primary Care Provider Reason for Visit * Reason Comments IV Therapy Infed Encounter Details Date Type Department Care Team (Latest Contact Info) Description 01/19/2024 11:15 AM EST Hem/Onc Treatment Hematology/Oncology Treatment, [place] [address] [place] [address] Lisa, Chair [address] [place] [address] Iron deficiency anemia, unspecified iron deficiency anemia type* Allergies No known active allergiesdocumented as of this encounter (statuses as of 02/06/2024) Medications [facility] Gummy 0.4-113.5 MG Oral Tablet Chewable Take 1 Tablet by mouth in the morning. Active Breast PumpIndications: Encounter for supervision of other normal in third trimester For lactating mother to breastfeed. 1 Each Active documented as of this encounter (statuses as of 02/06/2024) Active Problems Problem Noted Date Diagnosed Date [...] as of this encounter (statuses as of 02/06/2024) Social History Tobacco Use Types Packs/Day Years [...] Sign Reading Time Taken Comments Blood Pressure 109/61 01/19/2024 12:50 PM EST Pulse 104 01/19/2024 12:50 PM EST Temperature 36.6 C (97.9 F) 01/19/2024 12:[address] Respiratory Rate 16 01/19/2024 12:50 PM EST Oxygen Saturation 99% 01/19/2024 12:50 PM EST Inhaled Oxygen Concentration - - Weight - - Height - - Body Mass Index - - documented in this encounter Nursing Notes * Hannah Fernandez RN - 01/19/2024 4:16 PM EST Error entry for nursing note 01/19/24 1609: disregard "VAD flushed with brisk blood return. 5FU CADD pump connected to VAD per protocol. " Edited note for 01/19/24 at 1609: PIV removed. * Hannah Fernandez, FAVIAN - 01/19/2024 4:09 PM EST Pt completed treatment without issues. VAD flushed with brisk blood return. 5FU CADD pump connectedto VAD per protocol. Goals: Pt will remain from injury. Possible barriers to meeting goals: ambulation with IV pole, risk of reaction Stability of the patient: Moderately stable - low risk of patient condition declining or worsening Summary regarding today's goals: Met: . Pt remained free from injury during treatment today. Discharged in stable condition. * Hannah Fernandez RN - 01/19/2024 12:10 PM EST Chair 8. Pt presents for Infed infusion with no acute concerns. Patient was oriented to the facility, treatment area, chair space/room, use of chair and call rodriguez, process of bringing patient in and assessment, and pharmacy process. Patient communicated understanding. PIV established; NSS Infusing. Safety and Risk for Injury Patient will remain free from injury. Ensure appropriate safety devices are available. Provide and maintain safe environment. Patient instructed on use of heat and massage functions where applicable. Patient shown how to operate the heat function of the chair and to alert nursing staff if the chair feels too warm. Patient instructed on the risk of potential gomez while using the heat function. documented in this encounter Plan of Treatment Upcoming Encounters Date Type Department Care Team (Late st Contact Info) Description 02/07/2024 9:15 AM EST [facility] [address] [place] [address] Lynn Pa PA-C [address] [place] [address] 02/08/2024 2:30 PM EST Pharmacy Pharmacy, [place] [address] [place], [place] [id number] Clinic, [facility] [address] [place] [address] Health Maintenance Due Date Last Done Comments [...] anemia type- Primary documented in this encounter Administered Medications Inactive Administered Medications - up to 3 most recent administrations Medication Order MAR Action Action Date Dose Rate Site Iron Dextran (Infed) 975 mg in NSS 250 mL INFUSION 975 mg, IV Piggyback, ONCE, 1 dose, On Wed01/19/24 at 1300, Administer over 1 Hours, - Administer iron dextran infusion bag over 1 hour - Monitor for infusion reactions with vitals at 30 minutes and 60 minutes after starting the infusion. - If patient develops sign/symptoms of reaction or vital signs outside normal limits: 1) STOP infusion 2) CONTACT physicianIndications:Iron deficiency anemia, unspecified iron deficiency anemia type Start Infusion 01/19/2024 12:20 PM EST 975 mg 274.5 mL/hr Iron Dextran (Infed) IV Push TEST DOSE 25 mg IV Push, Administer over 0.5 Minutes, -Educate patient on signs/symptoms of infusion reaction -Administer 25 mg test dose of iron dextran before infusion bag -Observe patient for signs/symptoms of reaction with vital signs before test dose, then at 15 minutes after administering the test dose -If patient tolerates test dose with no reaction, proceed with iron dextran infusion -HOLD infusion and contact physician immediately if patient reacts to test dose, ONCE, 1 dose, On Wed01/19/24 at 1245Indications:Iron deficiency anemia, unspecified iron deficiency anemia type Given 01/19/2024 11:48 AM EST 25 mg NSS infusion Intravenous, at 50 mL/hr, PRN, Starting on Wed01/19/24 at 1245, Until Wed01/19/24 at 2013, Maintenance lineIndications:Iron deficiency anemia, unspecified iron deficiency anemia type Start Infusion 01/19/2024 11:40 AM EST 50 mL/hr documented in this encounter Additional Health Concerns Active Problems Noted Date Diagnosed Date OB Reminders 12/01/2023 documented as of this encounter Care Teams Senior Security Architect Relationship Specialty Start Date End Date Natalia Guardado MD [address] [place] [address] PCP - General Family Medicine 11/30/23 documented as of this encounter
--- OUTSIDE RECORDS SUMMARY | 2024-02-22 02:30 | External Medical Summary | Summary of Care ---
Author Name Unknown Organization [facility] Address [address] [place] [address] Phone [phone] Care Team Providers Care Wax Room Supervisor Name Role Phone Natalia Guardado MD Primary Care Provider [phone] Reason for Visit * Reason Onset Date Comments Appointment 01/12/2024 Iron infusion Other 01/12/2024 InFed Encounter Details Date Type Department Care Team (Late st Contact Info) Description 01/12/2024 Telephone Hematology/Oncology Treatment, [place] [address] [place] [address] Services, Scheduling [address] [place] [address] Appointment (Iron infusion); Other (InFed) Allergies No [...] encounter Miscellaneous Notes * Telephone Encounter - Teri Pa LPN - 01/13/2024 1:11 PM EST Order received for InFed [place] [id number] No prior authorization required Awaiting provider signature [...] Description 01/20/2024 10:00 AM EST Pharmacy Pharmacy, [place] [address] [place] [address] [facility] [address] [facility] [address] 01/20/2024 1:30 PM EST [facility] [place] [facility] [place] [address] 01/20/2024 2:15 PM EST Office Visit [facility]necology/Obstetrics [facility] [place] [address] Becky Patel CRNP [address] [facility] [place] [address] Health Maintenance Due Date Last Done Comments [...] documented as of this encounter Care Teams Wax Room Supervisor Relationship Specialty Start Date End Date Natalia Guardado MD 200 [facility] [place] [address] PCP - General Family Medicine 11/30/23 documented as of this encounter
--- OUTSIDE RECORDS SUMMARY | 2024-02-22 02:30 | External Medical Summary | Summary of Care ---
Author Name Unknown Organization [facility] Address [address] [place] [address] Phone [phone] Care Team Providers Care Department Of Sociology Chair Name Role Phone Natalia Guardado MD Primary Care Provider [phone] Reason for Visit * Reason Onset Date Comments Appointment 01/12/2024 Iron infusion Encounter Details Date Type Department Care Team (Late st Contact Info) Description 01/12/2024 Telephone Hematology/Oncology Treatment, [place] [address] [place] [address] Services, Scheduling [address] [place] [address] Appointment (Iron infusion) Allergies No known active [...] Description 01/20/2024 10:00 AM EST Pharmacy Pharmacy, [place] [address] [place] [address] Clinic, [place] [address] [place] [address] 01/20/2024 1:30 PM EST Imaging Radiology [facility] [address] [place] [address] 01/20/2024 2:15 PM EST Office Visit Gynecology/Obstetrics [facility] [address] [place] [address] Becky Patel CRNP [address] [place] [address] Health Maintenance Due Date Last Done Comments [...] documented as of this encounter Care Teams Department Of Sociology Chair Relationship Specialty Start Date End Date Natalia Guardado MD [address] [facility] [place], [place] [address] PCP - General Family Medicine 11/30/23 documented as of this encounter
--- OUTSIDE RECORDS SUMMARY | 2024-02-22 02:30 | External Medical Summary ---
Author Name Unknown Address Unknown Organization K01:[facility] [address] [place] [address] Laboratory Report Ordering Provider Test Date Status DIGNA ENAMORADO 02/07/2024 09:44:13 Final Observation Date Value Abnormality Reference (Units ) Status Streptococcus agalactiae DNA [Presence] in Specimen by NAKUL with probe detection 02/07/2024 09:44:13 Negative Negative Final No Group B Streptococcus det ected by culture-enhanced PCR (amplified probe). GBS GBSCT - [facility] 02/07/2024 09:44:13 0.0 Final GBS SPCCT - [facility] 02/07/2024 09:44:13 30.7 Final Performing Location [facility] - [address] [place] [address]
--- OUTSIDE RECORDS SUMMARY | 2024-02-22 02:30 | External Medical Summary | Summary of Care ---
Author Name Unknown Organization [facility] Address [address] [place] [address] Phone [phone] Care Team Providers Care Saddle Maker Name Role Phone Natalia Guardado MD Primary Care Provider [phone] Reason for Visit * Reason Onset Date Comments Appointment 01/12/2024 Iron infusion Other 01/12/2024 InFed Encounter Details Date Type Department Care Team (Late st Contact Info) Description 01/12/2024 Telephone Hematology/Oncology Treatment, [place] [address] [place] [address] Services, Scheduling [address] [place] [address] Appointment (Iron infusion); Other (InFed) Allergies No [...] encounter Miscellaneous Notes * Telephone Encounter - Meseret Hawk RN - 01/14/2024 3:59 PM EST [place] is signed. Scheduling: please call patient to schedule 3 hour appt "infed" (Lynn Pa). Thanks! * Telephone Encounter - Hali Carvalho OSA - 01/13/2024 4:12 PM EST Patient called to schedule her iron infusion ordered by Lynn Pa. She is aware that we are awaiting Lynn's signature and will call her to schedule. Please contact [facility] at [phone] to schedule. Thank you. * Telephone Encounter - Teri Pa LPN - 01/13/2024 1:11 PM EST Order received for InFed [place] [phone] No prior authorization required Awaiting provider signature [...] Description 01/20/2024 10:00 AM EST Pharmacy Pharmacy, [place] [address] [place] [address] Clinic, [place] [address] [place] [address] 01/20/2024 1:30 PM EST Imaging Radiology [facility] [address] [facility] [place] [address] 01/20/2024 2:15 PM EST Office Visit Gynecology/Obstetrics [facility] [address] [facility] [place] [address] Becky Patel CRNP [address] [place] [address] Health Maintenance Due Date Last Done Comments [...] documented as of this encounter Care Teams Saddle Maker Relationship Specialty Start Date End Date Natalia Guardado MD [address] [place] [address] PCP - General Family Medicine 11/30/23 documented as of this encounter
--- OUTSIDE RECORDS SUMMARY | 2024-02-22 02:30 | External Medical Summary | Summary of Care ---
Author Name Unknown Organization [facility] Address [address] [place] [address] Phone [phone] Care Team Providers Care Stylist Assistant Name Role Phone Natalia Guardado MD Primary Care Provider [phone] Reason for Visit * Reason Comments IV Therapy Infed Encounter Details Date Type Department Care Team (Latest Contact Info) Description 01/19/2024 11:15 AM EST Hem/Onc Treatment Hematology/Oncology Treatment, [place] [address] [place] [address] Lisa, Chair [address] [place] [address] Iron deficiency anemia, unspecified iron deficiency anemia type* Allergies No known active allergiesdocumented as of this encounter (statuses as of 01/19/2024) Medications CVS Gummy 0.4-113.5 MG Oral Tablet Chewable Take 1 Tablet by mouth in the morning. Active Breast PumpIndications: Encounter for supervision of other normal in third trimester For lactating mother to breastfeed. 1 Each Active documented as of this encounter (statuses as of 01/19/2024) Active Problems Problem Noted Date Diagnosed Date [...] as of this encounter (statuses as of 01/19/2024) Social History Tobacco Use Types Packs/Day Years [...] Description 01/20/2024 10:00 AM EST Pharmacy Pharmacy, [place] [address] [place] [address] Clinic, [place] [address] [place] [address] 01/20/2024 1:30 PM EST Imaging Radiology [facility] [address] [facility] [place] [address] 01/20/2024 2:15 PM EST Office Visit Gynecology/Obstetrics [facility] [address] [facility] [place] [address] Becky Patel CRNP [address] [place] [address] Health Maintenance Due Date Last Done Comments [...] Primary documented in this encounter Administered Medications Active Administered Medications - up to 3 most recent administrations Medication Order MAR Action Action Date Dose Rate Site EPINEPHrine 1 MG/ML inj 0.3 mg 0.3 mg, Intramuscular, ONCE PRN Other, Hypersensitivity Reaction or Anaphylaxis, Starting on Wed01/19/24 at 1139, Until Anu 01/20/24 at 1138, For 24 hoursIndications:Iron deficiency anemia, unspecified iron deficiency anemia type Famotidine (Pepcid) inj 20 mg 20 mg, IV Push, ONCE PRN Other, Hypersensitivity Reaction, Starting on Wed01/19/24 at 1139, Until Anu 01/20/24 at 1138, For 24 hours, Give IV push over 2 minutes.Indications:Iron deficiency anemia, unspecified iron deficiency anemia type hEParin 100 UNIT/ML Lock Flush inj 500 Units 500 Units (5 mL), IV Lock, PRN Other, IV Flush, Starting on Wed01/19/24 at 1139, Until Anu 01/20/24 at 1138, For 24 hours, Do not flush if lock, PICC, or central line not in place; IV infusing or unable to flush.Indications:Iron deficiency anemia, unspecified iron deficiency anemia type Hydrocortisone Sod Suc (PF) (Solu-Cortef) inj 100 mg 100 mg, IV Push, ONCE PRN Other, Hypersensitivity Reaction, Starting on Wed01/19/24 at 1139, Until Anu 01/20/24 at 1138, For 24 hoursIndications:Iron deficiency anemia, unspecified iron deficiency anemia type NSS infusion Intravenous, at 50 mL/hr, PRN, Starting on Wed01/19/24 at 1245, Until Discontinued, Maintenance lineIndications:Iron deficiency anemia, unspecified iron deficiency anemia type Start Infusion 01/19/2024 11:40 AM EST 50 mL/hr oxygen GAS Inhalation, OXYGEN, First dose on Wed01/19/24 at 1600, Until Discontinued, Device/Managed by: Low Flow Device, Goal SPO2 (%): 91-95, Starting Device: Nasal Cannula, Initial Flow Rate (LPM): 2, Lowest Support: Nasal Cannula: Flow 0-6 LPM. Titrate up/down by 1 LPM., Higher Support: Non-Rebreather (NRB) Mask: Minimum of 10 LPM. Titrate to maintain bag inflation., Titration Interval: Q2 minutes and as needed., Notify Provider: For sudden DECREASE in resting SPO2 to less than 85% and when escalating delivery device., Wean patient off Oxygen when the oxygen saturation is greater than or equal to 93%Indications:Iron deficiency anemia, unspecified iron deficiency anemia type sodium chloride 0.9 % flush central line 10 mL 10 mL, IV Push, PRN Other, IV Flush, Starting on Wed01/19/24 at 1139, Until Wed01/20/24 at 1138, For 24 hours, Do not flush if lock, PICC, or central line not in place; IV infusing or unable to flush.Indications:Iron deficiency anemia, unspecified iron deficiency anemia type Inactive Administered Medications - up to 3 [...] Given 01/19/2024 11:48 AM EST 25 mg documented in this encounter Additional Health Concerns Active Problems Noted Date Diagnosed Date OB Reminders 12/01/2023 documented as of this encounter Care Teams Stylist Assistant Relationship Specialty Start Date End Date Natalia Guardado MD [address] [place] [address] PCP - General Family Medicine 11/30/23 documented as of this encounter
--- OUTSIDE RECORDS SUMMARY | 2024-02-22 02:30 | External Medical Summary | Summary of Care ---
Author Name Unknown Organization [facility] Address [address] [place] [address] Phone [phone] Care Team Providers Care Lab Aid Name Role Phone Natalia Guardado MD Primary Care Provider [phone] Encounter Details Date Type Department Care Team (Late st Contact Info) Description 01/14/2024 Orders Only Pharmacy, [place] [address] [place] [address] Guillermina Proctor, [facility] [address] [place] [address] Allergies No known active allergiesdocumented as of this encounter (statuses as of 01/14/2024) Medications CVS Gummy 0.4-113.5 MG Oral Tablet Chewable Take 1 Tablet by mouth in the morning. Active Breast PumpIndications: Encounter for supervision of other normal in third trimester For lactating mother to breastfeed. 1 Each Active documented as of this encounter (statuses as of 01/14/2024) Active Problems Problem Noted Date Diagnosed Date [...] as of this encounter (statuses as of 01/14/2024) Social History Tobacco Use Types Packs/Day Years [...] 4:30 PM EDT Sexual Orientation Straight 11/30/2023 4 :30 PM EDT documented as of this encounter Plan of Treatment Upcoming Encounters Date Type Department Care Team (Late st Contact Info) Description 01/20/2024 10:00 AM EST Pharmacy Pharmacy, [place] [address] [place] [address] Clinic, [facility] [address] [place] [address] 01/20/2024 1:30 PM EST Imaging Radiology [facility] [address] [place] [address] 01/20/2024 2:15 PM EST Office Visit Gynecology/Obstetrics [facility] [address] [place] [address] Becky Patel CRNP 132 [facility] [place] [address] Health Maintenance Due Date Last Done Comments [...] documented as of this encounter Care Teams Lab Aid Relationship Specialty Start Date End Date Natalia Guardado MD [address] [place] [address] PCP - General Family Medicine 11/30/23 documented as of this encounter
--- OUTSIDE RECORDS SUMMARY | 2024-02-22 02:30 | External Medical Summary | Summary of Care ---
Author Name Unknown Organization [facility] Address [address] [place] [address] Phone [phone] Care Team Providers Care Picker And Sorter Load And Unload Name Role Phone Natalia Guardado MD Primary Care Provider [phone] Reason for Visit * Reason Comments Return Visit Encounter Details Date Type Department Care Team (Late st Contact Info) Description 01/20/2024 2:15 PM EST Office Visit Gynecology/Obstetric s [facility] [address] [place] [address] Becky Patel CRNP [address] [place] [address] Supervision of other normal , antepartum*; Antepartum anemia complicating ; Mass of right axilla Allergies No known active allergiesdocumented as of this encounter (statuses as of 01/20/2024) Medications CVS Gummy 0.4-113.5 MG Oral Tablet Chewable Take 1 Tablet by mouth in the morning. Active Breast PumpIndications: Encounter for supervision of other normal in third trimester For lactating mother to breastfeed. 1 Each Active documented as of this encounter (statuses as of 01/20/2024) Active Problems Problem Noted Date Diagnosed Date [...] as of this encounter (statuses as of 01/20/2024) Social History Tobacco Use Types Packs/Day Years [...] Sign Reading Time Taken Comments Blood Pressure 110/70 01/20/2024 2:04 PM EST Pulse - - Temperature - - Respiratory Rate - - Oxygen Saturation - - Inhaled Oxygen Concentration - - Weight 92.1 kg (203 lb) 01/20/2024 2:04 PM EST Height - - Body Mass Index 35.96 01/05/2024 4:28 PM EST documented in this encounter Progress Notes * Becky Patel CRNP - 01/20/2024 2:20 PM EST [id number] Has questions about hospital tour- info on Heir and Parent tour given. Growth u/s today, report in process. Vertex position. FHR 140bpm on u/s. Received IV iron yesterday. Good FM. No contractions, bleeding, LOF. KESHAWN Emerson * Marjan Alexis CMA - 01/20/2024 2:04 PM EST 34w6d Denies any concerns Had iron infusion yesterday. documented in this encounter Plan of Treatment Upcoming Encounters Date Type Department Care Team (Late st Contact Info) Description 01/31/2024 2:30 PM EST Pharmacy Pharmacy, [place] [address] [place] [address] Clinic, [place] [address] [place] [address] Health Maintenance Due Date Last Done Comments [...] documented as of this encounter Care Teams Picker And Sorter Load And Unload Relationship Specialty Start Date End Date Natalia Guardado MD 200 [facility] [place], [place] [id number] PCP - General Family Medicine 11/30/23 documented as of this encounter
--- OUTSIDE RECORDS SUMMARY | 2024-02-22 02:30 | External Medical Summary | Summary of Care ---
Author Name Unknown Organization [facility] Address [address] [place] [address] Phone [phone] Care Team Providers Care Distiller Name Role Phone Natalia Guardado MD Primary Care Provider [phone] Reason for Visit * Reason Onset Date Comments Appointment 01/12/2024 Iron infusion Other 01/12/2024 InFed Encounter Details Date Type Department Care Team (Late st Contact Info) Description 01/12/2024 Telephone Hematology/Oncology Treatment, [place] [address] [place] [phone] Services, Scheduling [address] [place] [address] Appointment (Iron infusion); Other (InFed) Allergies No [...] Hawk RN - 01/14/2024 3:59 PM EST [place] is signed. Scheduling: please call patient to schedule 3 hour appt "infed" (Lynn Pa). Thanks! * Telephone Encounter - Hali Carvalho OSA - 01/13/2024 4:12 PM EST Patient called to schedule her iron infusion ordered by Lynn Pa. She is aware that we are awaiting Lynn's signature and will call her to schedule. Please contact [facility] at [phone] to schedule. Thank you. * Telephone Encounter - Teri Pa LPN - 01/13/2024 1:11 PM EST Order received for InFed [place] plan [place] to p [id number] No prior authorization required Awaiting provider signature [...] Description 01/20/2024 10:00 AM EST Pharmacy Pharmacy, [place] [address] [place] [address] Clinic, Anemia [address] [place] [address] 01/20/2024 1:30 PM EST Imaging Radiology [facility] [address] [facility] [place] [address] 01/20/2024 2:15 PM EST Office Visit Gynecology/Obstetrics [facility] [address] [facility] [place] [address] Becky Patel CRNP [address] [place] [address] Health Maintenance Due Date Last Done Comments [...] documented as of this encounter Care Teams Distiller Relationship Specialty Start Date End Date Natalia Guardado MD [address] [place] [address] PCP - General Family Medicine 11/30/23 documented as of this encounter
--- OUTSIDE RECORDS SUMMARY | 2024-02-22 02:30 | External Medical Summary | Summary of Care ---
Author Name Unknown Organization [facility] Address [address] [place] [address] Phone [phone] Care Team Providers Care Pediatrician/Medical Doctor Name Role Phone Natalia Guardado MD Primary Care Provider [phone] Reason for Visit * Reason Onset Date Comments Appointment 01/12/2024 Iron infusion Other 01/12/2024 InFed Encounter Details Date Type Department Care Team (Late st Contact Info) Description 01/12/2024 Telephone Hematology/Oncology Treatment, [place] [address] [place] [phone] Services, Scheduling [address] [place] [address] Appointment (Iron infusion); Other (InFed) Allergies No [...] 1:11 PM EST Order received for InFed [place] p [id number] No prior authorization required Awaiting provider signature before scheduling patient. * Telephone Encounter - Bianca Marcelino OSA - 01/12/2024 4:11 PM EST Patient calling in to schedule iron infusion. documented in this encounter Plan of Treatment Upcoming Encounters Date Type Department Care Team (Late st Contact Info) Description 01/20/2024 10:00 AM EST Pharmacy Pharmacy, [place] [address] [place] [facility] [place] [address] Clinic, Anemia [address] [place] [facility] [place] [address] 01/20/2024 1:30 PM EST Imaging Radiology [facility] [address] [place] [address] 01/20/2024 2:15 PM EST Office Visit Gynecology/Obstetrics [facility]all[facility] [address] [place] [address] Becky Patel CRNP [address] [place] [address] Health Maintenance Due Date Last Done Comments [...] documented as of this encounter Care Teams Pediatrician/Medical Doctor Relationship Specialty Start Date End Date Natalia Guardado MD [address] [place] [address] PCP - General Family Medicine 11/30/23 documented as of this encounter
--- OUTSIDE RECORDS SUMMARY | 2024-02-22 02:30 | External Medical Summary | Summary of Care ---
Author Name Unknown Organization [facility] Address [address] [place] [address] Phone [phone] Care Team Providers Care Ward Service Supervisor Name Role Phone Natalia Guardado MD Primary Care Provider [phone] Reason for Visit * Reason Onset Date Comments Anemia Follow-Up 01/12/2024 Encounter Details Date Type Department Care Team (Late st Contact Info) Description 01/12/2024 4:00 PM [facility] Pharmacy Pharmacy, [place] [address] [place] [address] Clinic, Anemia [address] [place] [address] Iron deficiency anemia, unspecified iron deficiency anemia [...] as of this encounter Progress Notes * Chata Machado, [facility] - 01/12/2024 1:13 PM EST Patient Phone Numbers Patient referred by Lynn Pa PA-C for evaluation of anemia by the Anemia Clinic. Called patient to introduce role/clinic and to review labs from 12/22. Provided number for [facility]. Hgb: 9 g/dL TSAT: 3 % Ferritin: 8 ng/mL GA: 33w5d Estimated Date of Delivery: 02/25/24 Hgb is below target range for the 3rd trimester. Iron studies below target range. Patient is takingprenatal vitamin without iron. Patient is to hold oral iron at this time as she had constipation inthe past. OB note yesterday outlines. She states she is SOB when walking senior living up stairs and whenwalking around. Oral iron replenishment inadequate or contraindicated. Patient qualifies for IV iron repletion. Plan: Iron dextran (INFeD) 1000 mg IV x 1 dose. Orders placed and routed to appropriate parties. Patient agreeable to intervention. -Patient stated she needs a referral through her ins to be placed by her OB in order for tocover appointment. Patient is working with OB now to get referral placed though portal. Will follow up with patient in a week to check progress Anemia Clinic will continue to follow. Thank you for allowing us to participate in the care of thispatient. Thanks, Chata Machado [facility] Clinical Pharmacist [facility] Anemia Clinic (P: [phone]) documented in this encounter Plan of Treatment Upcoming Encounters Date Type Department Care Team (Late st Contact Info) Description 01/20/2024 10:00 AM EST Pharmacy Pharmacy, [place] [address] [place] [address] Clinic, Anemia [address] [place] [address] 01/20/2024 1:30 PM EST Imaging Radiology [facility] [address] [place] [address] 01/20/2024 2:15 PM EST Office Visit Gynecology/Obstetrics [facility] [address] [place] [address] Becky Patel CRNP [address] [place] [address] Health Maintenance Due Date Last Done Comments [...] Author Reminders Care Plan OB Reminders No Robert, Provider documented as of this encounter Medical Devices Not on filedocumented as of this encounter Visit Diagnoses Diagnosis Iron deficiency anemia, unspecified iron deficiency anemia type- Primary documented in this encounter Additional Health Concerns Active Problems Noted Date Diagnosed Date OB Reminders 12/01/2023 documented as of this encounter Care Teams Ward Service Supervisor Relationship Specialty Start Date End Date Natalia Guardado MD [address] [facility] [place] [address] PCP - General Family Medicine 11/30/23 documented as of this encounter
--- OUTSIDE RECORDS SUMMARY | 2024-02-22 02:30 | External Medical Summary | Summary of Care ---
Author Name Unknown Organization [facility] Address [address] [place] [address] Phone [phone] Care Team Providers Care Pantry Steward/Stewardess Name Role Phone Natalia Guardado MD Primary Care Provider [phone] Reason for Visit * Reason Comments IV Therapy Infed Encounter Details Date Type Department Care Team (Latest Contact Info) Description 01/19/2024 11:15 AM EST Hem/Onc Treatment Hematology/Oncology Treatment, [place] [address] [place] [address] Lisa, Chair [address] [place] [address] Iron deficiency anemia, unspecified iron deficiency anemia [...] No 11/30/2023 Are you (or your family) kahlida eless or worried that you might be [...] 02/07/2024 9:15 AM EST [facility] [address] [place] [address] Lynn Pa PA-C [address] [place] [address] 02/08/2024 2:30 PM EST Pharmacy Pharmacy, [place] [address] [place], [place] [id number] Clinic, [facility] [address] [place] [address] Health Maintenance Due Date Last Done Comments [...] documented as of this encounter Care Teams Pantry Steward/Stewardess Relationship Specialty Start Date End Date Natalia Guardado MD [address] [place] [address] PCP - General Family Medicine 11/30/23 documented as of this encounter
--- OUTSIDE RECORDS SUMMARY | 2024-02-22 02:30 | External Medical Summary | Summary of Care ---
Author Name Unknown Organization [facility] Address [address] [place] [address] Phone [phone] Care Team Providers Care Regional Transportation Manager Name Role Phone Natalia Guardado MD Primary Care Provider [phone] Reason for Visit * Reason Comments IV Therapy Infed Encounter Details Date Type Department Care Team (Latest Contact Info) Description 01/19/2024 11:15 AM EST Hem/Onc Treatment Hematology/Oncology Treatment, [place] [address] [place] [address] Lisa, Chair [address] Hem On[address] [place] [address] Iron deficiency anemia, unspecified iron deficiency anemia [...] Description 01/20/2024 10:00 AM EST Pharmacy Pharmacy, [place] [address] [place] [address] Clinic, Anemia [address] [place] [address] 01/20/2024 1:30 PM EST Imaging Radiology [facility] [address] [facility] [place] [address] 01/20/2024 2:15 PM EST Office Visit Gynecology/Obstetrics [facility] [address] [facility] [place] [address] Becky Patel CRNP [address] [place] [address] Health Maintenance Due Date Last Done Comments [...] documented as of this encounter Care Teams Regional Transportation Manager Relationship Specialty Start Date End Date Natalia Guardado MD [address] [place] [address] PCP - General Family Medicine 11/30/23 documented as of this encounter
--- OUTSIDE RECORDS SUMMARY | 2024-02-22 02:31 | External Medical Summary | Summary of Care ---
Author Name Unknown Organization [facility] Address [address] [place] [address] Phone [phone] Care Team Providers Care Drawing Instructor Name Role Phone Natalia Guardado MD Primary Care Provider [phone] Reason for Visit * Reason Comments Return Visit Encounter Details Date Type Department Care Team (Late st Contact Info) Description 01/05/2024 4:30 PM EST Office Visit Gynecology/Obstetric s [facility]all[facility] [address] [place] [address] Lynn Pa PA-C [address] [place] [address] Supervision of other normal , antepartum*; Antepartum anemia complicating ; Mass of right axilla; Uterine size date discrepancy Allergies No known active allergiesdocumented as of this encounter (statuses as of 01/05/2024) Medications Medication Sig Dispensed Refills Start Date End Date Status [facility] Gummy 0.4-113.5 MG Oral Tablet Chewable Take 1 Tablet by mouth in the morning. Active Breast PumpIndications:Encou nter for supervision of other normal in third trimester For lactating mother to breastfeed. 1 Each 12/23/2023 Active documented as of this encounter (statuses as of 01/05/2024) Active Problems Problem Noted Date Diagnosed Date Supervision of other normal , antepartu m 12/27/2023 Overview: Transfer of care at 30 weeks Antepartum anemia complicating 024 Overview: Third tri labs showed Hgb 9.0 Low ferritin, elevated TIBC No history of sickle cell. Sickle cell screen negative. Pt tolerated PO iron in past. Referral to IV iron. Mass of right axilla 12/27/2023 Overview: Not new. Suspect accessory mammary tissue. Ultrasound ordered. Estimated Date of Delivery Comme nts Yes 02/25/2024 Based on last me nstrual period of 05/21/2023 documented as of this encounter (statuses as of 01/05/2024) Social History Tobacco Use Types Packs/Day Years [...] Assigned at Female 11/30/2023 4:30 PM EDT Gender Identity Female 11/30/2023 4:30 PM EDT Sexual Orientation Straight 11/30/2023 4: 30 PM EDT Job Start Date Occupation Industry Not on file Not on file Not on file documented as of this encounter Last Filed Vital Signs Vital Sign Reading Time Taken Comments Blood Pressure 124/68 01/05/2024 4:28 PM EST Pulse - - Temperature - - Respiratory Rate - - Oxygen Saturation - - Inhaled Oxygen Concentration - - Weight 90.7 kg (200 lb) 01/05/2024 4:28 PM EST Height 160 cm (5' 3") 01/05/2024 4:28 PM EST Body Mass Index 35.43 01/05/2024 4:28 PM EST documented in this encounter Progress Notes * Lynn Pa PA-C - 01/05/2024 4:50 PM EST 32w5d No complaints. Anemia Hgb 9.0 -- referred to IV iron. Pt waiting on insurance approval to set it up. Plans to move forward. Given referral paper today, pt to call insurance and check in anything further needed at this time. Will hold on PO iron at this time as had issues with constipation. Denies VB, LOF, contractions. Pos fm. S>D, growth ordered. Pt states told on prior ultrasound baby was measuring ahead. RTC in 2 weeks Lynn Pa PA-C documented in this encounter Nursing Notes * Sakina Denis LPN - 01/05/2024 4:31 PM EST 32w5d Denies concerns. documented in this encounter Plan of Treatment Upcoming Encounters Date Type Department Care Team (Late st Contact Info) Description 01/06/2024 4:00 PM EST Pharmacy Pharmacy, [place] [address] [place] [address] Clinic, [place] [address] [place] [address] Scheduled Orders Name Type Priority Associated Diagnoses Orde r Schedule US PREG FOLLOW-UP EACH FETUS Medical Imaging Routine Supervision of other normal , antepartum Uterine size date discrepancy Expected: 01/05/2024, Expires: 02/03/2025 Health Maintenance Due Date Last Done Comments [...] complicating Anemia, antepartum Mass of right axilla Uterine size date discrepancy Uterine size date discrepancy, antepartum condition or complication documented in this encounter Additional Health Concerns Active Problems Noted Date Diagnosed Date OB Reminders 12/01/2023 documented as of this encounter Care Teams Drawing Instructor Relationship Specialty Start Date End Date Natalia Guardado MD [address] [facility] [place] [address] PCP - General Family Medicine 11/30/23 documented as of this encounter
--- OUTSIDE RECORDS SUMMARY | 2024-02-22 02:31 | External Medical Summary | Summary of Care ---
Author Name Unknown Organization [facility] Address [address] [place] [address] Phone [phone] Care Team Providers Care Adoption Counselor Name Role Phone Natalia Guardado MD Primary Care Provider [phone] Reason for Visit * Reason Comments Dosage Adjustment Via Phone (anticoag Cl inic) Anemia Follow-Up * Evaluate & Treat - Unlimited Visits (Within 10 days (routine)) - Pending Review Specialty Diagnoses / Procedures Referred By Contenid t Referred To Contact Pharmacist / Pharmacy Diagnoses VINCE (iron deficiency anemia) Lynn Pa PA-C [address] [place] [address] Referral ID Status Reason Start Date Expiration Date Visits Requested Visits Authorized [id number] Pending Review Specialty Services Required 06/24/2024 99 99 Encounter Details Date Type Department Care Team (Late Contact Info) Description 01/06/2024 4:00 PM EST Pharmacy Pharmacy, [place] [address] [place] [address] Clinic, Anemia [address] [place] [address] Iron deficiency anemia, unspecified iron deficiency anemia type* Allergies No known active allergiesdocumented as of this encounter (statuses as of 01/06/2024) Medications Medication Sig Dispensed Refills Start Date End Date Status [facility] Gummy 0.4-113.5 MG Oral Tablet Chewable Take 1 Tablet by mouth in the morning. Active Breast PumpIndications:Adwoa ramos for supervision of other normal in third trimester For lactating mother to breastfeed. 1 Each 12/23/2023 Active documented as of this encounter (statuses as of 01/06/2024) Active Problems Problem Noted Date Diagnosed Date [...] as of this encounter (statuses as of 01/06/2024) Social History Tobacco Use Types Packs/Day Years [...] on file documented as of this encounter Progress Notes * Leobardo Bernabe, [facility] - 01/06/2024 3:21 PM EST Patient Phone Numbers Patient referred by Lynn Pa PA-C for evaluation of anemia by the Anemia Clinic. Called patient to introduce role/clinic and to review labs from 12/22. Hgb: 9 g/dL TSAT: 3 % Ferritin: 8 ng/mL GA: 32w6d Estimated Date of Delivery: 02/25/24 Hgb is below target range for the 3rd trimester. Iron studies below target range. Patient is takingprenatal vitamin without iron. Patient is to hold oral iron at this time as she had constipation inthe past. OB note yesterday outlines. She states she is SOB when walking [facility] up stairs and whenwalking around. Oral iron replenishment inadequate or contraindicated. Patient qualifies for IV iron repletion. Tentative Plan: Iron dextran (INFeD) 1000 mg IV [...] to participate in the care of thispatient. Leobardo Bernabe, PharmD Clinical Pharmacist [facility] Anemia Clinic (P: [phone]) 01/06/2024 3:22 PM documented in this encounter Plan of Treatment Upcoming Encounters Date Type Department Care Team (Late st Contact Info) Description 01/12/2024 4:00 PM EST Pharmacy Pharmacy, [address] [address] Clinic, Anemia [address] [place] [address] 01/20/2024 1:30 PM EST Imaging Radiology [facility] [address] [place] [address] 01/20/2024 2:15 PM EST Office Visit Gynecology/Obstetrics [facility] [address] [place] [address] Becky Patel CRNP 132 [place] [address] Scheduled Referrals Name Type Priority Associated Diagnoses Orde r Schedule PHARMACIST MEDS THERAPY MGMT REFERRAL OP Referral Within 10 days (routine) VINCE (iron deficiency anemia) Ordered: 12/27/2023 Health Maintenance Due Date Last Done Comments [...] documented as of this encounter Care Teams Adoption Counselor Relationship Specialty Start Date End Date Natalia Guardado MD [address] [facility] [place] [address] PCP - General Family Medicine 11/30/23 documented as of this encounter
--- OUTSIDE RECORDS SUMMARY | 2024-02-22 02:31 | External Medical Summary | Summary of Care ---
Author Name Unknown Organization [facility] Address [address] [place] [address] Phone [phone] Care Team Providers Care Assembler Unit Name Role Phone Natalia Guardado MD Primary Care Provider [phone] Encounter Details Date Type Department Care Team (Late st Contact Info) Description 01/05/2024 Telephone Gynecology/Obstetrics [facility] [address] [facility] [place] [address] Lynn Pa PA-C [address] [facility] [address] Allergies No known active allergiesdocumented as of [...] on file documented as of this encounter Miscellaneous Notes * Telephone Encounter - Zoey Murdock OSA - 01/06/2024 8:31 AM EST Called and spoke with patient. She is scheduled for both the same day per her request. * Telephone Encounter - Lynn Pa PA-C - 01/05/2024 4:48 PM EST Please call patient to schedule growth ultrasound and 2 week return appointment. Ultrasound at any time. documented in this encounter Plan of Treatment Upcoming Encounters Date Type Department Care Team (Late st Contact Info) Description 01/06/2024 4:00 PM EST Pharmacy Pharmacy, [place] [address] [place] [address] Clinic, [facility] [address] [place] [address] 01/20/2024 1:30 PM EST Imaging Radiology [facility] 132 [facility] [place] [address] 01/20/2024 2:15 PM EST Office Visit Gynecology/Obstetrics [facility] [address] [place] [address] Becky Patel CRNP [address] [place] [address] Health Maintenance Due Date Last Done Comments [...] documented as of this encounter Care Teams Assembler Unit Relationship Specialty Start Date End Date Natalia Guardado MD [address] [place], [place] [address] PCP - General Family Medicine 11/30/23 documented as of this encounter
--- OUTSIDE RECORDS SUMMARY | 2024-02-22 02:31 | External Medical Summary | Summary of Care ---
Author Name Unknown Organization [facility] Address [address] [place] [address] Phone [phone] Care Team Providers Care Junior Project Manager Name Role Phone Natalia Guardado MD Primary Care Provider [phone] Reason for Visit * Reason Comments Dosage Adjustment Via Phone (anticoag Cl inic) Anemia Follow-Up * Evaluate & Treat - Unlimited Visits (Within 10 days (routine)) - Pending Review Specialty Diagnoses / Procedures Referred By Contenid t Referred To Contact Pharmacist / Pharmacy Diagnoses VINCE (iron deficiency anemia) Lynn Pa PA-C [address] [place] [address] Referral ID Status Reason Start Date Expiration Date Visits Requested Visits Authorized [id number] Pending Review Specialty Services Required 06/24/2024 99 99 Encounter Details Date Type Department Care Team (Late Contact Info) Description 01/06/2024 4:00 PM EST Pharmacy Pharmacy, [place] [address] [place] [address] Clinic, Anemia [address] [place] [address] Iron deficiency anemia, unspecified iron deficiency anemia [...] this encounter Progress Notes * Leobardo Bernabe, [facility] - 01/06/2024 3:21 PM EST Patient Phone [...] She states she is SOB when walking care home up stairs and whenwalking around. Oral iron [...] of thispatient. Leobardo Bernabe, PharmD Clinical Pharmacist [facility] Anemia Clinic (P: [phone]) 01/06/2024 3:22 PM documented in this encounter Plan of Treatment Upcoming Encounters Date Type Department Care Team (Late st Contact Info) Description 01/12/2024 4:00 PM EST Pharmacy Pharmacy, [address] [address] Clinic, Anemia [address] [place] [address] 01/20/2024 1:30 PM EST Imaging Radiology [facility] [address] [facility] [address] 01/20/2024 2:15 PM EST Office Visit Gynecology/Obstetrics [facility] [address] [facility] [place] [address] Becky Patel CRNP 132 [facility] [place] [address] Scheduled Referrals Name Type Priority Associated Diagnoses [...] documented as of this encounter Care Teams Junior Project Manager Relationship Specialty Start Date End Date Natalia Guardado MD [address] [place] [address] PCP - General Family Medicine 11/30/23 documented as of this encounter
--- OUTSIDE RECORDS SUMMARY | 2024-02-22 02:31 | External Medical Summary | Summary of Care ---
Author Name Unknown Organization [facility] Address [address] [place] [address] Phone [phone] Care Team Providers Care Sample Weaver Name Role Phone Natalia Guardado MD Primary Care Provider [phone] Reason for Visit * Reason Comments Dosage Adjustment Via Phone (anticoag Cl inic) Anemia Follow-Up * Evaluate & Treat - Unlimited Visits (Within 10 days (routine)) - Pending Review Specialty Diagnoses / Procedures Referred By Contenid t Referred To Contact Pharmacist / Pharmacy Diagnoses VINCE (iron deficiency anemia) Lynn Pa PA-C [address] [place] [address] Referral ID Status Reason Start Date Expiration Date Visits Requested Visits Authorized [id number] Pending Review Specialty Services Required 06/24/2024 99 99 Encounter Details Date Type Department Care Team (Late Contact Info) Description 01/06/2024 4:00 PM EST Pharmacy Pharmacy, [place] [address] [place] [address] Clinic, Anemia [address] [place] [address] Iron deficiency anemia, unspecified iron deficiency anemia [...] this encounter Progress Notes * Leobardo Bernabe, [facility] - 01/06/2024 3:21 PM EST Patient Phone [...] range. Patient is takingprenatal vitamin without iron. I advised patient to get OTC iron and take 65mg of ferrous sulfate once daily. She states she is SOB when walking long-term up stairs and when walking around. Oral iron replenishment inadequate or contraindicated. [...] of thispatient. Leobardo Bernabe, PharmD Clinical Pharmacist [facility] (P: [phone]) 01/06/2024 3:22 PM documented in this encounter Plan of Treatment Upcoming Encounters Date Type Department Care Team (Late st Contact Info) Description 01/12/2024 4:00 PM EST Pharmacy Pharmacy, [place] [address] [place] [address] Clinic, Anemia [facility] [place] [address] 01/20/2024 1:30 PM EST Imaging Radiology [facility] [address] [facility] [place] [address] 01/20/2024 2:15 PM EST Office Visit Gynecology/Obstetrics [facility] [address] [facility] [place] [address] Becky Patel CRNP [address] [facility] [place] [address] Scheduled Referrals Name Type Priority Associated Diagnoses [...] documented as of this encounter Care Teams Sample Weaver Relationship Specialty Start Date End Date Natalia Guardado MD [address] [place] [address] PCP - General Family Medicine 11/30/23 documented as of this encounter
--- OUTSIDE RECORDS SUMMARY | 2024-02-22 02:31 | External Medical Summary | Summary of Care ---
Author Name Unknown Organization [facility] Address [address] [place] [address] Phone [phone] Care Team Providers Care Shut Off Worker Name Role Phone Natalia Guardado MD Primary Care Provider [phone] Reason for Referral * Evaluate & Treat - Unlimited Visits (Within 10 days (routine)) - Pending Review Specialty Diagnoses / Procedures Referred By Reece garland Referred To Contact Pharmacist / Pharmacy Diagnoses VINCE (iron deficiency anemia) Lynn Pa PA-C [address] [place] [address] Phone: tel: fax: Referral ID Status Reason Start Date Expiration Date Visits Requested Visits Authorized [id number] Pending Review Specialty Services Required 06/24/2024 99 99 Question Answer Referral Priority Within 10 days (routine) Where should this appointment be scheduled? [facility] Referring Provider Role: Specialist Specialty: cyber security engineer Reason for Referral: Anemia Comments Pharmacist Medication Therapy Management: Iron deficiency anemia Canelo Cortez RN Reason for Visit * Reason Onset Date Comments Blood Management Program 12/27/2023 Encounter Details Date Type Department Care Team (Late st Contact Info) Description 12/27/2023 Telephone Patient Blood Management, [place] [address] [place] [address] Lynn Pa PA-C [address] [place] [address] Blood Management Program Allergies No known active allergiesdocumented as of this encounter (statuses as of 01/10/2024) Medications [facility] Gummy 0.4-113.5 MG Oral Tablet Chewable Take 1 Tablet by mouth in the morning. Active Breast PumpIndications: Encounter for supervision of other normal in third trimester For lactating mother to breastfeed. 1 Each Active documented as of this encounter (statuses as of 01/10/2024) Active Problems Problem Noted Date Diagnosed Date [...] as of this encounter (statuses as of 01/10/2024) Social History Tobacco Use Types Packs/Day Years [...] No 11/30/2023 Does the household have a [facility] source of income? (Household - for ages [...] encounter Miscellaneous Notes * Telephone Encounter - Canelo Cortez RN - 12/27/2023 2:11 PM EDT Recommend IV iron per OB MTM guidelines. Patient agreeable, prefers infusion at [facility]. documented in this encounter Plan of Treatment Upcoming Encounters Date Type Department Care Team (Late st Contact Info) Description 01/12/2024 4:00 PM EST Pharmacy Pharmacy, [place] [address] [place] [address] Clinic, [facility] [address] [place] [address] 01/20/2024 1:30 PM EST Imaging Radiology [facility] [address] [facility] [place] [address] 01/20/2024 2:15 PM EST Office Visit Gynecology/Obstetrics [facility] [address] [facility] [place] [address] Becky Patel CRNP [address] [facility] [place] [address] Scheduled Referrals Name Type Priority Associated Diagnoses [...] as of this encounter Visit Diagnoses Diagnosis VINCE (iron deficiency anemia)- Primary Iron deficiency anemia, unspecified documented in this encounter Additional Health Concerns Active Problems Noted Date Diagnosed Date OB Reminders 12/01/2023 documented as of this encounter Care Teams Shut Off Worker Relationship Specialty Start Date End Date Natalia Guardado MD [address] [place] [address] PCP - General Family Medicine 11/30/23 documented as of this encounter
--- OUTSIDE RECORDS SUMMARY | 2024-02-22 02:31 | External Medical Summary | Summary of Care ---
Author Name Unknown Organization [facility] Address [address] [place] [address] Phone [phone] Care Team Providers Care Packer Operator Automatic Name Role Phone Natalia Guardado MD Primary Care Provider [phone] Reason for Visit * Reason Comments Dosage Adjustment Via Phone (anticoag Cl inic) Anemia Follow-Up * Evaluate & Treat - Unlimited Visits (Within 10 days (routine)) - Pending Review Specialty Diagnoses / Procedures Referred By Contenid t Referred To Contact Pharmacist / Pharmacy Diagnoses VINCE (iron deficiency anemia) Lynn Pa PA-C [address] [place] [address] Referral ID Status Reason Start Date Expiration Date Visits Requested Visits Authorized [id number] Pending Review Specialty Services Required 06/24/2024 99 99 Encounter Details Date Type Department Care Team (Late Contact Info) Description 01/06/2024 4:00 PM EST Pharmacy Pharmacy, [place] [address] [place] [address] Clinic, Anemia [address] [place] [address] Iron deficiency anemia, unspecified iron deficiency anemia [...] encounter Progress Notes * Leobardo Bernabe, [facility] - 01/06/2024 3:21 PM EST Patient [...] [facility] and when walking around. Oral [...] of thispatient. Leobardo Bernabe, PharmD Clinical Pharmacist [facility] Anemia Clinic (P: [phone]) 01/06/2024 3:22 PM documented in this encounter Plan of Treatment Upcoming Encounters Date Type Department Care Team (Late st Contact Info) Description 01/12/2024 4:00 PM EST Pharmacy Pharmacy, [place] [address] [place] [address] Clinic, Anemia [facility] [place] [address] 01/20/2024 1:30 PM EST Imaging Radiology [facility] [address] [facility] [place] [address] 01/20/2024 2:15 PM EST Office Visit Gynecology/Obstetrics [facility] [address] [facility] [place] [address] Becky Patel CRNP 132 [facility] [place] [address] Scheduled Referrals Name Type Priority Associated Diagnoses [...] documented as of this encounter Care Teams Packer Operator Automatic Relationship Specialty Start Date End Date Natalia Guardado MD [address] [place] [address] PCP - General Family Medicine 11/30/23 documented as of this encounter
--- OUTSIDE RECORDS SUMMARY | 2024-02-22 02:31 | External Medical Summary | Summary of Care ---
Author Name Unknown Organization [facility] Address [address] [place] [address] Phone [phone] Care Team Providers Care Coastal Tug Mate Name Role Phone Natalia Guardado MD Primary Care Provider [phone] Reason for Visit * Reason Onset Date Comments Referral 12/01/2023 Encounter Details Date Type Department Care Team (Late st Contact Info) Description 12/01/[address] [facility] [address] [place] [address] Natalia Guardado MD [address] [place] [address] Referral Allergies No known active allergiesdocumented as of this encounter (statuses as of 12/29/2023) Medications Medication Sig Dispensed Refills Start Date End Date Status [facility] Gummy 0.4-113.5 MG Oral Tablet Chewable Take 1 Tablet by mouth in the morning. Active documented as of this encounter (statuses as of 12/29/2023) Active Problems Problem Noted Date Diagnosed Date [...] as of this encounter (statuses as of 12/29/2023) Social History Tobacco Use Types Packs/Day Years [...] encounter Miscellaneous Notes * Telephone Encounter - Caryn Trejo LPN - 12/08/2023 6:41 PM EDT Was this submitted to [facility]? Please follow up with patient. * Telephone Encounter - Megan Miller OSA - 12/06/2023 10:38 AM EDT Patient requesting a call back to discuss previous messages. Patient needs to have the referral submitted by today or she will not be able to attend appt on 12/07 or will need to pay for appt out of pocket. Please advise * Telephone Encounter - Shawanda Barber OSA - 12/03/2023 9:19 AM EDT Patient calling in to check on the status of previous message. Patient Called within 48 hour timeframe. Reminded patient of 48 hour turn-around time. Pt needs referral put in before her appt on 12/07. * Telephone Encounter - Caryn Trejo LPN - 12/01/2023 1:16 PM EDT Referrals need submitted for [facility] through [facility]. * Telephone Encounter - Shireen Garza OSA - 12/01/2023 10:13 AM EDT Patient is calling because there is some confusion with how things were submitted with her insurance. Her appointment for yesterday and referrals needs to be placed/submitted through the [facility] provider portal in order for patient to see OB and be covered for yesterday visit. Patient has talk to billing and was informed this is something that the office would need to do directly. documented in this encounter Plan of Treatment Upcoming Encounters Date Type Department Care Team (Late st Contact Info) Description 01/05/2024 4:30 PM EST [facility] [address] [place] [address] Lynn Pa PA-C [address] [facility] [place] [address] 01/06/2024 4:00 PM EST Pharmacy Pharmacy, [place] [address] [place] [address] Clinic, [place] [address] [place] [address] Health Maintenance Due Date Last Done Comments [...] documented as of this encounter Care Teams Coastal Tug Mate Relationship Specialty Start Date End Date Natalia Guardado MD [address] [place] [address] PCP - General Family Medicine 11/30/23 documented as of this encounter
--- OUTSIDE RECORDS SUMMARY | 2024-02-22 02:31 | External Medical Summary | Summary of Care ---
Author Name Unknown Organization [facility] Address [address] [place] [address] Phone [phone] Care Team Providers Care Cost Accounting Analyst Name Role Phone Natalia Guardado MD Primary Care Provider [phone] Reason for Visit * Reason Onset Date Comments Referral 12/01/2023 Encounter Details Date Type Department Care Team (Late st Contact Info) Description 12/01/2023 Telephone Family Practice [facility] [address] [place] [address] Natalia Guardado MD [address] [place] [address] Referral Allergies No known active allergiesdocumented as [...] encounter Miscellaneous Notes * Telephone Encounter - Miguelina Calderón OSA - 12/29/2023 2:10 PM EDT Patient is no longer needing due to leaving the facility due to it not being taken care of her new PCP is at [facility]. * Telephone Encounter - Caryn Trejo LPN - 12/08/2023 6:41 PM EDT Was this submitted to [facility]? Please follow up with patient. * Telephone [...] 1:16 PM EDT Referrals need submitted for [facility] through [facility]. * Telephone Encounter - Shireen Garza OSA - 12/01/2023 10:13 AM EDT Patient is calling because there is some confusion with how things were submitted with her insurance. Her appointment for yesterday and referrals needs to be placed/submitted through the [facility] provider portal in order for patient to see OB and be covered for yesterday visit. Patient has talk to billing and was informed this is something that the office would need to do directly. documented in this encounter Plan of Treatment Upcoming Encounters Date Type Department Care Team (Late st Contact Info) Description 01/05/2024 4:30 PM EST Office Visit [facility]cology[facility] [address] [place] [address] Lynn Pa PA-C [address] [place] [address] 01/06/2024 4:00 PM EST Pharmacy Pharmacy, [place] [address] [place] [address] Clinic, Anemia [address] [place] [address] Health Maintenance Due Date Last Done Comments HIV Screening 04/29/2010 Hepatitis C Screening 04/29/2013 DTap/Tdap Vaccines (1 - Tdap) 04/29/2014 Hepatitis B Vaccine (1 of 3 - 19+ 3-dose series) 04/29/2014 Pap Smear 04/29/2016 COVID-19 Vaccine (1 - 2024-2 5 season) 2023 Influenza Vaccine (FLU shot) [...] documented as of this encounter Care Teams Cost Accounting Analyst Relationship Specialty Start Date End Date Natalia Guardado MD [address] [place] [address] PCP - General Family Medicine 11/30/23 documented as of this encounter
--- OUTSIDE RECORDS SUMMARY | 2024-02-22 02:32 | External Medical Summary | Summary of Care ---
Author Name Unknown Organization [facility] Address [address] [place] [address] Phone [phone] Care Team Providers Care Agronomy Location Manager Name Role Phone Natalia Guardado MD Primary Care Provider [phone] Reason for Visit * Reason Comments Blood Management Program Encounter Details Date Type Department Care Team (Late st Contact Info) Description 12/27/2023 Documentation Patient Blood Management, [place] [address] [place] [address] Canelo Cortez, RN Allergies No known active allergiesdocumented as of this encounter (statuses as of 12/27/2023) Medications Medication Sig Dispensed Refills Start Date End Date Status [facility] Gummy 0.4-113.5 MG Oral Tablet Chewable Take 1 Tablet by mouth in the morning. Active Breast PumpIndications:Encou nter for supervision of other normal in third trimester For lactating mother to breastfeed. 1 Each 12/23/2023 Active documented as of this encounter (statuses as of 12/27/2023) Active Problems Problem Noted Date Diagnosed Date Supervision of other normal , antepartu 12/27/2023 Overview: Transfer of care at 30 [...] as of this encounter (statuses as of 12/27/2023) Social History Tobacco Use Types Packs/Day Years [...] as of this encounter Progress Notes * Canelo Cortez RN - 12/27/2023 3:09 PM EDT REFERRAL - Patient Blood Management Name: Mare Crocker REQUESTING SERVICE: [facility] OB REASON FOR REFERRAL: new evaluation outpatient, anemia in [place]: 02/25/24 Anemia Evaluation: Latest Reference Range & Units 12/23/23 15:32 HGB 12.0 - 15.3 g/dL 9.0 (L) HCT 36.0 - 45.2 % 29.7 (L) Iron 33 - 151 ug/dL 18 (L) Iron Binding Capacity 250 - 425 ug/dL 609 (H) Transferrin Saturation Percent 15 - 55 % 3 (L) Ferritin 13 - 150 ng/mL 8 (L) Immature Reticuloctye Fraction 2.5 - 20.6 % 41.6 (H) Reticulocyte Hemoglobin 29.7 - 37.4 pg 22.7 (L) (L): Data is abnormally low (H): Data is abnormally high Current Patient Medications: Medications that may impair hemostasis: none Medications that may impair iron absorption: none Patient Refused Blood Transfusion? (e.g. Gnosticism): no Possible Contributing Factors: iron deficiency Treatment Recommendations: IV iron per OB MTM guidelines. Spoke with Mare, agreeable to IV iron. Risks and benefits of IV iron, including risk of adverse drug reaction discussed with patient. Patient voiced understanding. Thank you for allowing Blood Management to participate in the care of this patient. documented in this encounter Plan of Treatment Upcoming Encounters Date Type Department Care Team (Late st Contact Info) Description 01/05/2024 4:30 PM EST Office Visit Gynecology/Obstetrics [facility] [address] [place] [address] Lynn Pa PA-C [address] [place] [address] Health Maintenance Due Date Last Done Comments [...] documented as of this encounter Care Teams Agronomy Location Manager Relationship Specialty Start Date End Date Natalia Guardado MD [address] [facility] [place], [place] [address] PCP - General Family Medicine 11/30/23 documented as of this encounter
--- OUTSIDE RECORDS SUMMARY | 2024-02-22 02:32 | External Medical Summary | Summary of Care ---
Author Name Unknown Organization [facility] Address [address] [place] [address] Phone [phone] Care Team Providers Care Furniture Finisher Name Role Phone Natalia Guardado MD Primary Care Provider [phone] Encounter Details Date Type Department Care Team (Late st Contact Info) Description 11/30/2023 Telephone Gynecology/Obstetrics [facility] [address] [place] [address] Lynn Pa PA-C [address] [place] [address] Allergies No known active allergiesdocumented as of this encounter (statuses as of 11/30/2023) Medications Medication Sig Dispensed Refills Start Date End Date Status [facility] Gummy 0.4-113.5 MG Oral Tablet Chewable Take 1 Tablet by mouth in the morning. Active documented as of this encounter (statuses as of 11/30/2023) Active Problems No known active problems documented as of this encounter (statuses as of 11/30/2023) Social History Tobacco Use Types Packs/Day Years Used Date Smoking Tobacco: Never Smokeless Tobacco: Never Alcohol Use Standard Drinks/Week Comments Not Currently 0 (1 standard drink = 0.6 oz pur e alcohol) socially Hunger Vital Sign Answer Date Recorded Within [...] ages 0-17 years) Not on file 11/30/2023 Sex and Gender Information Value Date Recorded Sex Assigned at Not on file Gender Identity Not on file Sexual Orientation Not on file Job Start Date Occupation Industry Not on file Not on file Not on file documented as of this encounter Miscellaneous Notes * Telephone Encounter - Zoey Murdock OSA - 11/30/2023 9:25 AM EDT Had another PAR message asking for help scheduling. Patient is 27 weeks and 4 days and is transferring care from another facility. Patient has signed release and it is being faxed to previous office. documented in this encounter Plan of Treatment Upcoming Encounters Date Type Department Care Team (Late st Contact Info) Description 12/01/2023 9:00 AM EDT Nurse Only [facility] [address] [place] [address] Gw, Nurse [facility] [address] [place] [address] 12/08/2023 1:30 PM EDT [facility] [address] [place] [address] Lynn Pa PA-C [address] [place] [address] 05/30/2024 11:20 AM EDT Office Visit Family Practice [facility] [address] [facility] [place] [address] Natalia Guardado MD [address] [facility] [place] [address] Health Maintenance Due Date Last Done Comments HIV Screening 04/29/2010 Hepatitis C Screening 04/29/2013 DTap/Tdap Vaccines (1 - Tdap) 04/29/2014 Hepatitis B Vaccine (1 of 3 - 19+ 3-dose series) 04/29/2014 Pap Smear 04/29/2016 Influenza Vaccine (FLU shot) (#1) 2023 01/02/2017, 01/05/2016 COVID-19 Vaccine ( - 2023-2 5 season) 2023 Postponed from 10/30 (Unavailable) Depression Screening 11/29/2024 11/30/2023 MENINGOCOCCAL (MENACTRA/MENVEO) Aged [...] this topic documented as of this encounter Medical Devices Not on filedocumented as of this encounter Care Teams Furniture Finisher Relationship Specialty Start Date End Date Natalia Guardado MD [address] [place] [address] PCP - General Family Medicine 11/30/23 documented as of this encounter
--- OUTSIDE RECORDS SUMMARY | 2024-02-22 02:32 | External Medical Summary ---
Author Name Unknown Address Unknown Organization [id number][facility] [place] [address] [place] [address] Laboratory Report Ordering Provider Test Date Status KELSEADIGNA 12/23/2023 15:32:48 Final Observation Date Value Abnormality Reference (Units ) Status Retic, % (auto) 12/23/2023 15:32:48 2.59 Above high normal 0.80-1.90 (%) Final Reticulocytes, Absolute 12/23/2023 15:32:48 94.0 31.3-100.1 (K/uL) Final Reticulocyte fraction, immature 12/23/2023 15:32:48 41.6 Above high normal 2.5-20.6 (%) Final Reticulocyte HGB 12/23/2023 15:32:48 22.7 Below low normal 29.7-37.4 (pg) Final Performing Location [facility] [place] [address] [place] [address]
--- OUTSIDE RECORDS SUMMARY | 2024-02-22 02:32 | External Medical Summary ---
Author Name Unknown Address Unknown Organization [id number]:[facility] [place] [address] [address] [place] [address] Laboratory Report Ordering Provider Test Date Status DIGNA ENAMORADO 12/23/2023 15:32:48 Final Observation Date Value Abnormality Reference (Units ) Status WBC, Total 12/23/2023 15:32:48 12.55 Above high normal 4 .00-10.80 (K/uL) Final RBC 12/23/2023 15:32:48 3.62 3.85-5.15 (M/uL) Final Hemoglobin 12/23/2023 15:32:48 9.0 Below low normal 12 .0-15.3 (g/dL) Final Anemia reflex testing trigge rs on a HGB < 12.0 for Females and HGB < 13.0 for Males in accordance with the WHO Anemia Guidelines
Anemia reflex testing triggers on a HGB < 12.0 for Females and HGB < 13.0 for Males in accordance with the WHO Anemia Guidelines HCT 12/23/2023 15:32:48 29.7 Below low normal 36. 0-45.2 (%) Final MCV 12/23/2023 15:32:48 82.0 81.5-97.5 (fL) Final MCH 12/23/2023 15:32:48 24.9 27.0-34.0 (pg) Final MCHC 12/23/2023 15:32:48 30.3 32.0-36.0 (g/dL) Final RDW 12/23/2023 15:32:48 14.9 11.5-15.5 (%) Final Platelets 12/23/2023 15:32:48 389 140-400 (K /uL) Final MPV 12/23/2023 15:32:48 10.3 6.6-11.1 ( fL) Final Nucleated erythrocytes/100 leukocytes [Ratio] in Blood by Automated count 12/23/2023 15:32:48 0 <=0 (/100 WBCs) Final Performing Location [facility] [address] [facility] [address]
--- OUTSIDE RECORDS SUMMARY | 2024-02-22 02:32 | External Medical Summary | Summary of Care ---
Author Name Unknown Organization [facility] Address [address] [place] [address] Phone [phone] Care Team Providers Care Metalizer Name Role Phone Natalia Guardado MD Primary Care Provider [phone] Reason for Visit * Reason Comments Outpatient Testing Encounter Details Date Type Department Care Team (Late st Contact Info) Description 12/27/2023 9:20 AM EDT Laboratory Laboratory, [facility] [address] [place] [id number] [facility] [address] [place] [address] Abnormal glucose tolerance in mother complicating Allergies No known active allergiesdocumented as of [...] encounter (statuses as of 12/27/2023) Active Problems Estimated Date of Delivery Comme nts Yes 02/25/2024 Based on last me nstrual period of 05/21/2023 No known active problems documented as of [...] on file documented as of this encounter Plan of Treatment Upcoming Encounters Date Type Department Care Team (Late st Contact Info) Description 01/05/2024 4:30 PM EST Office Visit Gynecology/Obstetrics [facility] [address] [place] [address] Lynn Pa PA-C [address] [place] [address] Pending Results Name Type Priority Associated Diagnoses Date /Time GESTATIONAL GLUCOSE TOLERANCE, 3 HOUR Lab Routine Abnormal glucose tolerance in mother complicating 12/27/2023 9:18 AM EDT 100-G GESTATIONAL GLUCOSE, 3 HOUR Lab Routine Abnormal glucose tolerance in mother complicating 12/27/2023 12:20 PM EDT Health Maintenance Due Date Last Done Comments [...] Procedure Name Priority Date/Time Associated Diagnosis Comments 100-G GESTATIONAL GLUCOSE, 2 HOUR Routine 12/27/2023 11:21 AM EDT Abnormal glucose tolerance in mother complicating 100-G GESTATIONAL GLUCOSE, 1 HOUR Routine 12/27/2023 10:23 AM EDT Abnormal glucose tolerance in mother complicating 100-G GESTATIONAL GLUCOSE, FASTING Routine 12/27/2023 9:18 AM EDT Abnormal glucose tolerance in mother complicating documented in this encounter Results * 100-G GESTATIONAL GLUCOSE, 2 HOUR (12/27/2023 11:21 AM EDT) 100-g Gestational Glucose, 2 Hour 120 70 - 154 mg/dL 12/27/2023 12:14 PM EDT [facility] [place] [facility] Blood Venous blood specimen / Unknown Venipuncture / Unknown 12/27/2023 11:21 AM EDT 12/27/2023 11:21 AM EDT Lynn Pa PA-C LAB BLOOD ORDERABLES [facility] [place] [facility] [address] [facility] [place] [address] * 100-G GESTATIONAL GLUCOSE, 1 HOUR (12/27/2023 10:23 AM EDT) 100-g Gestational Glucose, 1 Hour 149 70 - 179 mg/dL 12/27/2023 11:14 AM EDT [facility] [place] [facility]10 Blood Venous blood specimen / Unknown Venipuncture / Unknown 12/27/2023 10:23 AM EDT 12/27/2023 10:23 AM EDT Lynn Pa PA-C LAB BLOOD ORDERABLES [facility] [place] [facility] [address] [facility] [place] [address] * 100-G GESTATIONAL GLUCOSE, FASTING (12/27/2023 9:18 AM EDT) 100-g Gestational Glucose, Fasting 82 70 - 94 mg/dL 12/27/2023 10:08 AM EDT [facility] [place] [facility]10 Blood Venous blood specimen / Unknown Venipuncture / Unknown 12/27/2023 9:18 AM EDT 12/27/2023 9:18 AM EDT Narrative [facility] [place] [facility]10 - 12/27/2023 10:08 AM EDT Based on ACOG guideline, gestational diabetes mellitus is diagnosed when any of the following is met: Fasting is greater than or equal to 95 mg/dL 1 hour is greater than or equal to 180 mg/dL 2 hour is greater than or equal to 155 mg/dL 3 hour is greater than or equal to 140 mg/dL Lynn Pa PA-C LAB BLOOD ORDERABLES [facility] [place] [facility] 132 [facility] [place] [address] documented in this encounter Visit Diagnoses Diagnosis Abnormal glucose tolerance in mother complicating Abnormal maternal glucose tolerance, complicating , childbirth, or the puerperium, unspecified as to episode of care documented in this encounter Additional Health Concerns Active Problems Noted Date Diagnosed Date OB Reminders 12/01/2023 documented as of this encounter Care Teams Metalizer Relationship Specialty Start Date End Date Natalia Guardado MD [address] [place] [address] PCP - General Family Medicine 11/30/23 documented as of this encounter
--- OUTSIDE RECORDS SUMMARY | 2024-02-22 02:32 | External Medical Summary ---
Author Name Unknown Address Unknown Organization [id number]:[facility] [place] 57[facility]10 - [address] [place] [id number] Laboratory Report Ordering Provider Test Date Status DIGNA ENAMORADO 12/27/2023 12:20:55 Final Observation Date Value Abnormality Reference (Units ) Status Glucose [Mass/volume] in Serum or Plasma --3 hours post dose glucose 12/27/2023 12:20:55 115 70-139 (mg/dL) Final Performing Location [facility] 57[facility]1 0 - [address] [place] [id number]
--- OUTSIDE RECORDS SUMMARY | 2024-02-22 02:32 | External Medical Summary | Summary of Care ---
Author Name Unknown Organization [facility] Address [address] [place] [address] Phone [phone] Care Team Providers Care Toolroom Clerk Name Role Phone Natalia Guardado MD Primary Care Provider [phone] Reason for Referral * Evaluate & Treat - Unlimited Visits (Within 10 days (routine)) - Pending Review Specialty Diagnoses / Procedures Referred By Reece t Referred To Contact Physical Therapy / Physical Medicine And Rehab Diagnoses Herniation of intervertebral disc between L5 and S1 Lumbar back pain Natalia Guardado MD [address] [place] [address] Referral ID Status Reason Start Date Expiration Date Visits Requested Visits Authorized [id number] Pending Review Specialty Services Required 11/30/[phone] Question Answer Referral Priority Within 10 days (routine) Where should this appointment be scheduled? [facility] * Evaluate & Treat - Unlimited Visits (Within 10 days (routine)) - Pending Review Specialty Diagnoses / Procedures Referred By Reece t Referred To Contact Obstetrics/Gynecology / Gynecology Obstetrics Diagnoses 28 weeks gestation of Natalia Guardado MD [address] [place] [address] Referral ID Status Reason Start Date Expiration Date Visits Requested Visits Authorized [id number] Pending Review Specialty Services Required 11/30/[phone] Question Answer Referral Priority Within 10 days (routine) Where should this appointment be scheduled? [facility] Reason for Visit * Reason Comments NEW PATIENT Patient presents for an OB referral - she is currently and is about 28 weeks along. Also possibly PT referral. Patient also needs a prescription for a breast pump. Encounter Details Date Type Department Care Team (Latest Contact Info) Description 11/30/2023 8:20 AM EDT Office Visit Family Practice [facility] [address] [place] [address] Natalia Guardado MD [address] [place] [address] 28 weeks gestation of *; Herniation of intervertebral disc between L5 and S1; Lumbar back pain Allergies No known active allergiesdocumented as of this encounter (statuses as of 11/30/2023) Medications Medication Sig Dispensed Refills Start Date End Date Status [facility] G[facility] 0.4-113.5 MG Oral Tablet Chewable Take 1 Tablet by mouth in the morning. Active documented as of this encounter (statuses as of 11/30/2023) Active Problems Comments Yes No known active problems documented as of this encounter (statuses as of 11/30/2023) Social History Tobacco Use Types Packs/Day Years Used Date Smoking Tobacco: Never Smokeless Tobacco: Never Tobacco Cessation:Counseling Given: Not Answered Alcohol Use Standard Drinks/Week Comments Not Currently [...] No 11/30/2023 Does the household have a [facility] source of income? (Household - for ages [...] ages 0-17 years) Not on file 11/30/2023 Comments Yes Sex and Gender Information Value Date Recorded Sex Assigned at Not on file Gender Identity Not on file Sexual Orientation Not on file Job Start Date Occupation Industry Not on file Not on file Not on file documented as of this encounter Last Filed Vital Signs Vital Sign Reading Time Taken Comments Blood Pressure 116/78 11/30/2023 8:36 AM EDT Pulse 109 11/30/2023 8:36 AM EDT Temperature 37.1 C (98.7 F) 11/30/2023 8:36 AM ED T Respiratory Rate 16 11/30/2023 8:36 AM EDT Oxygen Saturation 97% 11/30/2023 8:36 AM EDT Inhaled Oxygen Concentration - - Weight 87.6 kg (193 lb 1.9 oz) 11/30/2023 8:36 A M EDT Height 160.3 cm (5' 3.11") 11/30/2023 8:36 AM ED T Body Mass Index 34.09 11/30/2023 8:36 AM EDT documented in this encounter Progress Notes * Natalia Guardado MD - 11/30/2023 8:21 AM EDT Subjective Chief Complaint Patient presents with NEW PATIENT Patient presents for an OB referral - she is currently and is about 28 weeks along. Also possibly PT referral. Patient also needs a prescription for a breast pump. HPI: Tyneshia Obi is a 28 year old female. Patient is unaccompanied. The following issues were addressed today: Patient presents today to establish care. 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 They moved from [place]. She was in the for 7 years. She is currently 28 weeks . This is her second . She was receiving OB care in [place]. Needs a referral to establish care here. Would also like a referral to PT. Has a herniated disc at L5-S1 and was previously receiving injections but unable to do this during . Had started PT prior to moving. The patient's past medical history, surgical history, family history, social history, vaccination history, medications, and allergies were reviewed. She declined flu vaccination today. Review of Systems: See HPI Objective BP 116/78 | Pulse 109 | Temp 37.1 C (98.7 F) (Tympanic) | Resp 16 | Ht 1.603 m (5' 3.11") | Wt 87.6 kg (193 lb 1.9 oz) | SpO2 97% | BMI 34.09 kg/m | BSA 1.98 m Wt Readings from Last 3 Encounters: 11/30/23 87.6 kg (193 lb 1.9 oz) BP Readings from Last 3 Encounters: 11/30/23 116/78 General: Well-appearing, no acute distress Cardiovascular: Regular rate and rhythm, no murmur Respiratory: Good respiratory effort, breath sounds equal and clear to auscultation bilaterally Neurological: Alert and oriented Psychiatric: Appropriate mood and affect Assessment & Plan 1. 28 weeks gestation of - OB REFERRAL OP 2. Herniation of intervertebral disc between L5 and S1 3. Lumbar back pain - PHYSICAL THERAPY REFERRAL OP Return in about 6 months (around 05/30/2024). This note was electronically signed by Natalia Guardado MD documented in this encounter Nursing Notes * Josette Go, MED ASSIST - 11/30/2023 8:40 AM EDT Chief Complaint Patient presents with NEW PATIENT Patient presents for an OB referral - she is currently and is about 28 weeks along. Also possibly PT referral. Patient also needs a prescription for a breast pump. Patient has been verbally educated on the need or importance of HepB Vaccine, Tdap Vaccine, and FluVaccine and has declined topic(s). documented in this encounter Plan of Treatment Upcoming Encounters Date Type Department Care Team (Late st Contact Info) Description 12/01/2023 9:00 AM EDT Nurse Only Gynecology/Obstetrics [facility] [address] [facility] [place] [address] Gw, Nurse Pharmacy Picking Technician [facility] 132 [facility] [place] [address] 12/08/2023 1:30 PM EDT Office Visit Gynecology/Obstetrics [facility] [address] [place] [address] Lynn Pa PA-C [address] [place] [address] 05/30/2024 11:20 AM EDT Office Visit Family Practice [facility] 200 [place] [address] Natalia Guardado MD 200 [facility], [place] [address] Scheduled Referrals Name Type Priority Associated Diagnoses Orde r Schedule OB REFERRAL OP Referral Within 10 days (routine) 28 weeks gestation of Ordered: 11/30/2023 PHYSICAL THERAPY REFERRAL OP Referral Within 10 days (routine) Herniation of intervertebral disc between L5 and S1 Lumbar back pain Ordered: 11/30/2023 Health Maintenance Due Date Last Done Comments [...] as of this encounter Visit Diagnoses Diagnosis 28 weeks gestation of - Primary state, incidental Herniation of intervertebral disc between L5 and S1 Lumbar back pain Lumbago documented in this encounter Care Teams Toolroom Clerk Relationship Specialty Start Date End Date Natalia Guardado MD [address] [place] [address] PCP - General Family Medicine 11/30/23 documented as of this encounter
--- OUTSIDE RECORDS SUMMARY | 2024-02-22 02:32 | External Medical Summary ---
Author Name Unknown Address Unknown Organization [id number]:[facility] [place] - [address] [place] [address] Laboratory Report Ordering Provider Test Date Status DIGNA ENAMORADO 12/23/2023 15:32:48 Final Observation Date Value Abnormality Reference (Units ) Status Iron 12/23/2023 15:32:48 18 Below low normal 33-151 (ug/dL) Final Iron-binding capacity 12/23/2023 15:32:48 609 Above high normal 250-425 (ug/dL) Final Transferrin Sat % 12/23/2023 15:32:48 3 Below low normal 15-55 (%) Final Performing Location [facility] [place] - [address] [place] [address]
--- OUTSIDE RECORDS SUMMARY | 2024-02-22 02:32 | External Medical Summary | Summary of Care ---
Author Name Unknown Organization [facility] Address [address] [place] [address] Phone [phone] Care Team Providers Care Armature Varnisher Name Role Phone Natalia Guardado MD Primary Care Provider [phone] Encounter Details Date Type Department Care Team (Late st Contact Info) Description 12/07/2023 Orders Only Family Practice [facility] [address] [place] [address] Natalia Guardado MD [address] [place] [address] Allergies No known active allergiesdocumented as of this encounter (statuses as of 12/07/2023) Medications Medication Sig Dispensed Refills Start Date End Date Status [facility] G[facility] 0.4-113.5 MG Oral Tablet Chewable Take 1 Tablet by mouth in the morning. Active documented as of this encounter (statuses as of 12/07/2023) Active Problems Estimated Date of Delivery Comme nts Yes 02/25/2024 Based on last me nstrual period of 05/21/2023 No known active problems documented as of this encounter (statuses as of 12/07/2023) Social History Tobacco Use Types Packs/Day Years [...] Care Team (Late st Contact Info) Description 12/08/2023 1:30 PM EDT Office Visit Gynecology/Obstetrics [facility] [address] [place] [address] Lynn Pa PA-C [address] [place] [address] Health Maintenance Due Date Last Done Comments [...] Procedure Name Priority Date/Time Associated Diagnosis Comments CHEMISTRY-OUTSIDE Routine 08/18/2023 documented in this encounter Results * CHEMISTRY-OUTSIDE (08/18/2023) Not all results display below - see scan for full detail OUTSIDE LAB (SEE SCANNED REPORT) Comment:SEE SCAN; CHLAMYDIA AMPLIFICATION, URINE CULTURE, CBCD/D/PLT+RPR+ABO+RUB IGG, HIB AB/P24 CREATININE OUTSIDE L AB (SEE SCANNED REPORT) EGFR OUTSIDE LA B (SEE SCANNED REPORT) POTASSIUM OUTSIDE LA B (SEE SCANNED REPORT) GLUCOSE OUTSIDE LA B (SEE SCANNED REPORT) HOURS FASTING OUTSID E LAB (SEE SCANNED REPORT) TRIGLYCERIDES-OUT SIDE LAB OUTSIDE LAB (SEE SCANNED REPORT) CHOLESTEROL-OUTSI DE LAB OUTSIDE LAB (SEE SCANNED REPORT) HDL-OUTSIDE LAB OUTS AIRAM LAB (SEE SCANNED REPORT) CHOL/HDL RATIO-OUTSIDE LAB OUTSIDE LA B (SEE SCANNED REPORT) LDL (CALCULATED)-OUTS AIRAM LAB OUTSIDE LAB (SEE SCANNED REPORT) LDL (DIRECT MEASURE)-OUTSIDE LAB OUTSIDE LAB (SEE SCANNED REPORT) HEMOGLOBIN, K8F-GQDIRFS LAB OUTSIDE LAB (SEE SCANNED REPORT) PHOSPHORUS-OUTSID E LAB OUTSIDE LAB (SEE SCANNED REPORT) PTH-OUTSIDE LAB OUTS AIRAM LAB (SEE SCANNED REPORT) MICROALBUMIN RATIO-OUTSIDE LAB OUTSIDE LA B (SEE SCANNED REPORT) PROTEIN, UA-OUTSIDE LAB OUTSIDE LAB (SEE SCANNED REPORT) HGB 11.3 11.1 - 15.9 G/DL OUTSIDE LAB (SEE SCANNED REPORT) 08/18/2023 History Per Patient LABORATORY OUTSIDE LAB (SEE SCANNED REPORT) documented in this encounter Additional Health Concerns Active Problems Noted Date Diagnosed Date OB Reminders 12/01/2023 documented as of this encounter Care Teams Armature Varnisher Relationship Specialty Start Date End Date Natalia Guardado MD [address] [place] [address] PCP - General Family Medicine 11/30/23 documented as of this encounter
--- OUTSIDE RECORDS SUMMARY | 2024-02-22 02:32 | External Medical Summary ---
Author Name Unknown Address Unknown Organization [id number] [address] [place] [id number] Laboratory Report Ordering Provider Test Date Status DIGNA ENAMORADO 12/23/2023 15:32:48 Final Observation Date Value Abnormality Reference (Units ) Status Glucose [Moles/volume] in Serum or Plasma --1 hour post 50 g glucose PO 12/23/2023 15:32:48 156 Above high normal 70-129 (mg/dL) Final Performing Location [facility] [place] 57-1 0 - [address] [place] [address]
--- OUTSIDE RECORDS SUMMARY | 2024-02-22 02:32 | External Medical Summary ---
Author Name Unknown Address Unknown Organization [id number]:[facility] - [address] [facility] [address] [place] [address] Laboratory Report Ordering Provider Test Date Status DIGNA ENAMORADO 12/23/2023 15:32:48 Final Observation Date Value Abnormality Reference (Units ) Status Sickle cell screen 12/23/2023 15:32:48 Negative N egative Final Performing Location [facility] - [address] [facility] [address] [place] [address]
--- OUTSIDE RECORDS SUMMARY | 2024-02-22 02:32 | External Medical Summary ---
Author Name Unknown Address Unknown Organization [id number] [address] [facility] [address] Laboratory Report Ordering Provider Test Date Status DIGNA ENAMORADO 12/23/2023 15:32:48 Final Observation Date Value Abnormality Reference (Units ) Status SYNC LEUKOCYTES IN BLOOD BY AUTOMATED COUNT 12/23/2023 15:32:48 12.55 Above high normal 4.00-10.80 (K/uL) Final Segs 12/23/2023 15:32:48 76.8 Above high normal 40.0-75.0 (%) Final Lymphs % 12/23/2023 15:32:48 13.9 Below low normal 18.0-42.0 (%) Final Monos 12/23/2023 15:32:48 7.3 1.0-11.0 (%) Final Eosinophils 12/23/2023 15:32:48 0.8 0.0-6.0 (%) Final Basos 12/23/2023 15:32:48 0.3 0.0-2.0 (%) Final Immature Granulocyte, Percent 12/23/2023 15:32:48 0.9 0.0-2.0 (%) Final Absolute Segs 12/23/2023 15:32:48 9.65 Above high normal 1.80-7.70 (K/uL) Final Lymphs, absolute 12/23/2023 15:32:48 1.74 1.00-4.80 (K/ul) Final Monos, Abs 12/23/2023 15:32:48 0.91 0.00-1.10 (K/uL) Final Eos, Abs 12/23/2023 15:32:48 0.10 0.00-0.70 (K/uL) Final Basos, Abs 12/23/2023 15:32:48 0.04 0.00-0.20 (K/uL) Final Immature Granulocytes, Number 12/23/2023 15:32:48 0.11 0.00-0.20 (K/uL) Final Performing Location [facility] [address] [facility] [address]
--- OUTSIDE RECORDS SUMMARY | 2024-02-22 02:32 | External Medical Summary ---
Author Name Unknown Address Unknown Organization K0G:[facility] [place] 57-10 - [address] [place] [id number] Laboratory Report Ordering Provider Test Date Status DIGNA ENAMORADO 12/27/2023 09:18:27 Final Based on ACOG guideline, ges tational diabetes mellitus is diagnosed when any of the following is met:
Fasting is greater than or equal to 95 mg/dL
1 hour is greater than or equal to 180 mg/dL
2 hour is greater than or equal to 155 mg/dL
3 hour is greater than or equal to 140 mg/dL Observation Date Value Abnormality Reference (Units ) Status Glucose, fasting 12/27/2023 09:18:27 82 70- 94 (mg/dL) Final Performing Location LAB[facility]ORY [facility] [place] 57-1 0 - [address] [place] [id number]
--- OUTSIDE RECORDS SUMMARY | 2024-02-22 02:32 | External Medical Summary | Summary of Care ---
Author Name Unknown Organization [facility] Address [address] [place] [address] Phone [phone] Care Team Providers Care Rock Mason Apprentice Name Role Phone Natalia Guardado MD Primary Care Provider [phone] Reason for Referral * (Within 10 days (routine)) Specialty Diagnoses / Procedures Referred By Contenid t Referred To Contact Hyperbaric Medicine Lynn Pa PA-C [address] [place] [address] Referral ID Status Reason Start Date Expiration Date Visits Re quested Visits Authorized Question Answer Referral Priority Within 10 days (routine) Where should this appointment be scheduled? [facility] Encounter Details Date Type Department Care Team (Late st Contact Info) Description 12/24/2023 Telephone Gynecology/Obstetrics [facility] [address] [place] [address] Lynn Pa PA-C [address] [place] [address] Allergies No known active allergiesdocumented as of [...] No 11/30/2023 Does the household have a [facility] source of income? (Household - for ages [...] encounter Miscellaneous Notes * Telephone Encounter - Lynn Pa PA-C - 12/27/2023 1:25 PM EDT Referral placed. * Telephone Encounter - Shirley Merino LPN - 12/27/2023 1:12 PM EDT Patient notified, agreeable to referral * Telephone Encounter - Lynn Pa PA-C - 12/27/2023 12:58 PM EDT Please let her know that she passed her 3 hour sugar testing. No evidence of gestational diabetes. Her sickle cell screen was negative. Would like to refer her to blood management for IV iron given hemoglobin levels. If she is agreeable, will place referral. * Telephone Encounter - Lynn Pa PA-C - 12/24/2023 4:41 PM EDT Thank you. I did place order for sickle cell screen as patient agreeable. Tolerated iron in past. * Telephone Encounter - Shirley Merino LPN - 12/24/2023 4:33 PM EDT Patient notified. Agreeable. Will complete on Wednesday, has US appt. Agreeable to sickle cell testing. She is not aware of ever being tested for sickle cell and never diagnosed with this. She had to take iron supplements with last * Telephone Encounter - Safia Dumas RN - 12/24/2023 4:16 PM EDT Attempted to call patient. No answer phone rang a couple times and then stopped ringing. Unable to leave VM * Telephone Encounter - Lynn Pa PA-C - 12/24/2023 4:04 PM EDT Please contact patient. Received her labs back. She unfortunately did not pass her 1 hour gtt. Will need to complete 3 hourgtt. Please give instructions, will need to fast ahead of this testing. Should bring snack with herto have after testing complete. Her labs also showed she is anemic. Hemoglobin 9.0. Anemia in can be common. Just wanted to confirm with her that she does not have sickle cell anemia. Has she ever been tested? I'd like to place order for this if never tested before we treat anemia. Has she ever taken iron supplements before for anemia? documented in this encounter Plan of Treatment Upcoming Encounters Date Type Department Care Team ([place] st Contact Info) Description 01/05/2024 4:30 PM EST Office Visit Gynecology/Obstetrics [facility] [address] [place] [address] Lynn Pa PA-C [address] [place] [address] Scheduled Referrals Name Type Priority Associated Diagnoses Orde r Schedule BLOOD MANAGEMENT REFERRAL Referral Within 10 days (routine) Antepartum anemia complicating Ordered: 12/27/2023 Health Maintenance Due Date Last [...] Not on filedocumented as of this encounter Results * SICKLE CELL SCREEN (12/23/2023 3:32 PM EDT) Sickle Cell Screen Negative Negative 12/25/2023 7:53 AM EDT [facility] Blood Venous blood specimen / Unknown Venipuncture / Unknown 12/23/2023 3:32 PM EDT 12/23/2023 3:32 PM EDT Lynn Pa PA-C LAB BLOOD ORDERABLES [facility] [address] [place] [address] documented in this encounter Visit Diagnoses Diagnosis Abnormal glucose tolerance in mother complicating - Primary Abnormal maternal glucose tolerance, complicating , childbirth, or the puerperium, unspecified as to episode of care Antepartum anemia complicating Anemia, antepartum documented in this encounter Additional Health Concerns Active Problems Noted Date Diagnosed Date OB Reminders 12/01/2023 documented as of this encounter Care Teams Rock Mason Apprentice Relationship Specialty Start Date End Date Natalia Guardado MD [address] [place] [address] PCP - General Family Medicine 11/30/23 documented as of this encounter
--- OUTSIDE RECORDS SUMMARY | 2024-02-22 02:32 | External Medical Summary ---
Author Name Unknown Address Unknown Organization [id number]:[facility] [place] - [address] [address] Laboratory Report Ordering Provider Test Date Status DIGNA ENAMORADO 12/23/2023 15:32:48 Final Observation Date Value Abnormality Reference (Units ) Status Creatinine 12/23/2023 15:32:48 0.6 0.5-1.0 (mg/dL) Final Glomerular filtration rate/1.73 sq M.predicted [Volume Rate/Area] in Serum, Plasma or Blood by Creatinine-based formula (CKD-EPI) 12/23/2023 15:32:48 >90 >=60 (mL/min) Final eGFR is calculated based on the CKD-EPI 2020 equation. Performing Location [facility] [place] - [address] [address]
--- OUTSIDE RECORDS SUMMARY | 2024-02-22 02:32 | External Medical Summary | Summary of Care ---
Author Name Unknown Organization [facility] Address [address] [place] [address] Phone [phone] Care Team Providers Care Pop Singer Name Role Phone Natalia Guardado MD Primary Care Provider [phone] Reason for Visit * Reason Comments New Visit Encounter Details Date Type Department Care Team (Late st Contact Info) Description 12/01/2023 9:00 AM EDT Nurse Only Gynecology/Obstetrics [facility] [address] [place] [address] Gw, Nurse Charge Master Analyst [facility] [address] [place] [address] New Visit Allergies No known active allergiesdocumented as of this encounter (statuses as of 12/01/2023) Medications Medication Sig Dispensed Refills Start Date End Date Status [facility] Gummy 0.4-113.5 MG Oral Tablet Chewable Take 1 Tablet by mouth in the morning. Active documented as of this encounter (statuses as of 12/01/2023) Active Problems Estimated Date of Delivery Comme nts Yes 02/25/2024 Based on last me nstrual period of 05/21/2023 No known active problems documented as of this encounter (statuses as of 12/01/2023) Social History Tobacco Use Types Packs/Day Years [...] No 11/30/2023 Does the household have a [facility] source of income? (Household - for ages [...] Sign Reading Time Taken Comments Blood Pressure - - Pulse - - Temperature - - Respiratory Rate - - Oxygen Saturation - - Inhaled Oxygen Concentration - - Weight 87.1 kg (192 lb) 12/01/2023 9:03 AM EDT Height 160 cm (5' 3") 12/01/2023 9:03 AM EDT Body Mass Index 34.01 12/01/2023 9:03 AM EDT documented in this encounter Progress Notes * Adriana Gonzalez RN - 12/01/2023 9:11 AM EDT NOB nurse intake completed with patient. Reviewed "A Guide to Help You Prepare for Delivery" booklet, discussing diet-including fish advisory and listeria, exercise, travel, sexual intercourse duringpregnancy, warning signs, and when to call the provider. Introduced names of providers and informedpatient she will be seen by all providers and that any one of them could be production support manager at the time of luda carlson. Also discussed the role of the laborist in her care. Phone numbers given to reach the office during and after office hours. Reviewed over the counter medications that are safe in . Advised only Tylenol, no ASA or Ibuprofen unless otherwise ordered by provider. Discussed the importance of taking PNV containing iron. Discussed avoiding alcohol and drugs during .If using tobacco, advised patient to stop using tobacco as soon as possible. Discussed development and highly sensitive period of organogenesis in the first trimester. Prepared childbirth classand Basics class information given along with contact information to register for these classes. Information provided regarding genetic screening options. [place]. Has not been seen 10/11. Just moved here. Has not had glucose testing. Thinks she is + blood type because she has not received rhogam. She requested her records yesterday. I asked that she call us the day prior to ensure that the records have been received. She will do this. documented in this encounter Plan of Treatment Upcoming Encounters Date Type Department Care Team (Late st Contact Info) Description 12/08/2023 1:30 PM EDT Office Visit Gynecology/Obstetrics [facility] [address] [facility] [place] [address] Lynn Pa PA-C [address] [place] [address] 05/30/2024 11:20 AM EDT Office Visit Family Practice [facility] [address] [place] [address] Natalia Guardado MD [address] [facility] [place] [address] Health Maintenance Due Date Last Done Comments [...] filedocumented as of this encounter Care Teams Pop Singer Relationship Specialty Start Date End Date Natalia Guardado MD [address] [place] [address] PCP - General Family Medicine 11/30/23 documented as of this encounter
--- OUTSIDE RECORDS SUMMARY | 2024-02-22 02:32 | External Medical Summary ---
Author Name Unknown Address Unknown Organization [id number]:[facility] [place] [address] [address] Laboratory Report Ordering Provider Test Date Status DIGNA ENAMORADO 12/23/2023 15:32:48 Final Observation Date Value Abnormality Reference (Units ) Status ABO 12/23/2023 15:32:48 O Final RH 12/23/2023 15:32:48 Positive Final RED BLOOD CELL ANTIBODY SCREEN 12/23/2023 15:32:48 Negative Final SPECIMEN EXPIRATION DATE 12/23/2023 15:32:48 12/26/2023 23:59 Final Performing Location [facility] - [address] [address]
--- OUTSIDE RECORDS SUMMARY | 2024-02-22 02:32 | External Medical Summary | Summary of Care ---
Author Name Unknown Organization [facility] Address [address] [place] [address] Phone [phone] Care Team Providers Care Director Database Name Role Phone Natalia Guardado MD Primary Care Provider [phone] Reason for Visit * Reason Comments Outpatient Testing Encounter Details Date Type Department Care Team (Late st Contact Info) Description 12/23/2023 2:30 PM EDT Laboratory Laboratory, [facility] [address] [place] [address] [facility] [address] [place] [address] Encounter for supervision of other normal in third trimester Allergies No known active allergiesdocumented as of this encounter (statuses as of 12/23/2023) Medications Medication Sig Dispensed Refills Start Date End Date Status [facility] Gummy 0.4-113.5 MG Oral Tablet Chewable Take 1 Tablet by mouth in the morning. Active Breast PumpIndications:Encou nter for supervision of other normal in third trimester For lactating mother to breastfeed. 1 Each 12/23/2023 Active documented as of this encounter (statuses as of 12/23/2023) Active Problems Estimated Date of Delivery Comme nts Yes 02/25/2024 Based on last me nstrual period of 05/21/2023 No known active problems documented as of this encounter (statuses as of 12/23/2023) Social History Tobacco Use Types Packs/Day Years [...] Team (Late st Contact Info) Description 12/27/2023 10:30 AM EDT Imaging Radiology [facility] [address] [place] [address] 01/05/2024 4:30 PM EST Office Visit Gynecology/Obstetrics [facility] [address] [place] [address] Lynn Pa PA-C [address] [place] [address] Pending Results Name Type Priority Associated Diagnoses Date /Time 50-G GESTATIONAL GLUCOSE, 1 HOUR Lab Routine Encounter for supervision of other normal in third trimester 12/23/2023 3:32 PM EDT CBC WITH WBC DIFFERENTIAL AND ANEMIA REFLEX WORKUP Lab Routine Encounter for supervision of other normal in third trimester 12/23/2023 3:32 PM EDT SYPHILIS ANTIBODY SCREEN WITH REFLEX TO RPR Lab Routine Encounter for supervision of other normal in third trimester 12/23/2023 3:32 PM EDT TYPE AND SCREEN Lab Routine Encounter for supervision of other normal in third trimester 12/23/2023 3:32 PM EDT ANEMIA CBC Lab Routine Encounter for supervision of other normal in third trimester 12/23/2023 3:32 PM EDT DIFFERENTIAL, AUTOMATED Lab Routine Encounter for supervision of other normal in third trimester 12/23/2023 3:32 PM EDT ANEMIA REFLEX CHEMISTRY HOLD Lab Routine Encounter for supervision of other normal in third trimester 12/23/2023 3:32 PM EDT SYPHILIS ANTIBODY SCREEN Lab Routine Encounter for supervision of other normal in third trimester 12/23/2023 3:32 PM EDT Health Maintenance Due Date Last [...] as of this encounter Visit Diagnoses Diagnosis Encounter for supervision of other normal in third trimester documented in this encounter Additional Health Concerns Active Problems Noted Date Diagnosed Date OB Reminders 12/01/2023 documented as of this encounter Care Teams Director Database Relationship Specialty Start Date End Date Natalia Guardado MD [address] [place] [address] PCP - General Family Medicine 11/30/23 documented as of this encounter
--- OUTSIDE RECORDS SUMMARY | 2024-02-22 02:32 | External Medical Summary | Summary of Care ---
Author Name Unknown Organization [facility] Address [address] [place] [address] Phone [phone] Care Team Providers Care Biological Sciences Instructor Name Role Phone Natalia Guardado MD Primary Care Provider [phone] Reason for Visit * Reason Comments New Visit Encounter Details Date Type Department Care Team (Late st Contact Info) Description 12/23/2023 1:30 PM EDT Office Visit Gynecology/Obstetric s [facility] [address] [facility] [place] [address] Lynn Pa PA-C [address] [facility] [place] [address] Encounter for supervision of other normal in third trimester*; Axillary lump, right Allergies No known active allergiesdocumented as of [...] money to buy more. Never true 11/30/19 Within the past 12 months, t he [...] Sign Reading Time Taken Comments Blood Pressure 122/64 12/23/2023 1:26 PM EDT Pulse 104 12/23/2023 1:26 PM EDT Temperature - - Respiratory Rate - - Oxygen Saturation 98% 12/23/2023 1:26 PM EDT Inhaled Oxygen Concentration - - Weight 91 kg (200 lb 9.6 oz) 12/23/2023 1:26 PM EDT Height 160 cm (5' 3") 12/23/2023 1:26 PM EDT Body Mass Index 35.53 12/23/2023 1:26 PM EDT documented in this encounter Progress Notes * Lynn Pa PA-C - 12/23/2023 1:42 PM EDT CC: NOB HPI: Mare Crocker is a 28 year old female here for initial OB exam. PACHECO 02/25/2024 by LMP. Patient here with FOB. Transferring care from [place]. Has moved to [facility] due to FOB's work. He works in . LMP: 05/21/2023 Had first trimester ultrasound completed 08/18/2023 throughout outside records. Scanned to chart. Had anatomy ultrasound 10/13/2023. Complete normal per patient. Having baby boy! Had negative AFP tetra screen for genetics. Patient currently 30 weeks and 6 days . No history of GDM. Has not completed third tri labsor glucola. Declines Tdap and flu. Rh + through labs reviewed from outside records. Reviewed all other labs scanned to chart from outside records. She is taking vitamins. She plans to breastfeed infant. Reviewed PMH, social hx, family hx, surgical hx, ob hx with patient. Pertinent positives: - Has R axillary lump. Had starting with last child. Seemed to improve after stoppingbreastfeeding. Started to notice it increasing in size following + test. Painful, worse with movement of arm. No family or personal history of breast cancer. She denies any bloody nipple discharge. - Pt states found to be 1-2 cm dilated around 6 months. Put on bedrest. Pt reports had at 40 weeks. Patient would like cervical check today. Has been having pelvic pressure/pain nightly for pastseveral weeks. Pt concerned given history of dilation early. Harrison Depression Scale: No data recorded Harrison suicide question and score: Score of 3 = Yes, quite often. Score of 2 = Sometimes. Score of 1 = Hardly ever No data recorded Denies depression/blues. OB History Para Term AB Living 4 1 1 2 1 SAB IAB Ectopic Multiple Live Births 2 # Outcome Date GA Lbr Zoran/2nd Weight Sex Type Anes PTL Lv 4 Current 3 SAB 12/2022 7w0d 2 SAB 05/2022 6w0d 1 Term 03/29/12 40w0d 3.289 kg (7 lb 4 oz) F Vag-Spont No past medical history on file. Social History Socioeconomic History Marital status: Tobacco Use Smoking status: Never Smokeless tobacco: Never Vaping Use Vaping status: Never Used Substance and Sexual Activity Alcohol use: Not Currently Comment: socially Drug use: Never Sexual activity: Yes Partners: Male Social Determinants of Health Financial Resource Strain: Low Risk (11/30/2023) Financial Resource Strain Do you have any trouble paying for your medications, or do you think you might in the future? (Adult - for ages 18 years and over): No Food Insecurity: No Food Insecurity (11/30/2023) Food Insecurity Do you need food for this week? (Adult - for ages 18 years and over): No Transportation Needs: No Transportation Needs (11/30/2023) Transportation Needs Has lack of transportation kept you from medical appointments, meetings, work, or from getting things needed for daily living? Check all that apply. (Adult - for ages 18 years and over): No Social Connections: Socially Integrated (11/30/2023) Social Connections How often do you feel lonely or isolated from those around you? (Adult - for ages 18 years and over): Never Housing Stability: Low Risk (11/30/2023) Housing Stability Do you currently live in a penitentiary or have no steady place to sleep at night? (Adult - for ages 18 years and over): No Are you homeless or worried that you might be in the future? (Adult - for ages 18 years and over): No No past surgical history on file. Current Outpatient Medications Medication Sig Dispense Refill [facility] Gummy 0.4-113.5 MG Oral Tablet Chewable Take 1 Tablet by mouth in the morning. No current facility-administered medications for this visit. Review of patient's allergies indicates: No Known Allergies Family History Problem Relation Name Age of Onset Heart disease Father Esophageal cancer Grandmother (Maternal) Diabetes Grandfather (Maternal) Hypertension Grandfather (Maternal) Heart disease Grandmother (Paternal) Denies family history of genetic conditions in patient's and FOB's families. ROS: Negative apart from HPI PHYSICAL EXAM: please see physical BP 122/64 | Pulse 104 | Ht 1.6 m (5' 3") | Wt 91 kg (200 lb 9.6 oz) | LMP 05/21/2023 | SpO2 98% | BMI 35.53 kg/m | BSA 2.01 m Meat Seafood Associate Documentation Provider requested piping blocker. Name of piping blocker: Sakina Washington LPN ASSESSMENT/PLAN: Encounter for supervision of other normal in third trimester (Primary) - 50-G GESTATIONAL GLUCOSE, 1 HOUR; Future; Expected date: 12/23/2023 - CBC WITH WBC DIFFERENTIAL AND ANEMIA REFLEX WORKUP; Future; Expected date: 12/23/2023 - SYPHILIS ANTIBODY SCREEN WITH REFLEX TO RPR; Future; Expected date: 12/23/2023 - TYPE AND SCREEN; Future; Expected date: 12/23/2023 - Breast Pump; For lactating mother to breastfeed. Axillary lump, right - US BREAST AXILLA RIGHT; Future; Expected date: 12/23/2023 - Discussed timing of routine OB care - Recommended flu, COVID and Tdap vaccine. She declines. - Recommended clean healthy diet and discussed foods/drinks to avoid in . Discussed recommend weight gain in . - Counseled on OTC measures to help alleviate nausea and advised to call if these are ineffective - Recommended daily vitamin. - Discussed labs as ordered and instructed patient to present to lab following appointment. Follow Up: Return in about 2 weeks (around 01/06/2024), or if symptoms worsen or fail to improve, for Return visit. | For: Return visit | Check-out note: Pt going to lab Please schedule ultrasound Lynn Pa PA-C documented in this encounter Nursing Notes * Sakina Denis LPN - 12/23/2023 1:34 PM EDT 30w6d NOB Concerned she may be dilating. 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 documented in this encounter Plan of Treatment Upcoming Encounters Date Type Department Care Team (Late st Contact Info) Description 12/27/2023 10:30 AM EDT Imaging Radiology [facility] [address] [place] [address] 01/05/2024 4:30 PM EST Office Visit Gynecology/Obstetrics [facility] [address] [place] [address] Lynn Pa PA-C [address] [place] [address] Pending Results Name Type Priority Associated Diagnoses [...] in third trimester 12/23/2023 3:32 PM EDT Scheduled Orders Name Type Priority Associated Diagnoses Orde r Schedule 50-G GESTATIONAL GLUCOSE, 1 HOUR Lab Routine Encounter for supervision of other normal in third trimester Expected: 12/23/2023, Expires: 12/22/2024 CBC WITH WBC DIFFERENTIAL AND ANEMIA REFLEX WORKUP Lab Routine Encounter for supervision of other normal in third trimester Expected: 12/23/2023, Expires: 12/22/2024 SYPHILIS ANTIBODY SCREEN WITH REFLEX TO RPR Lab Routine Encounter for supervision of other normal in third trimester Expected: 12/23/2023, Expires: 12/22/2024 TYPE AND SCREEN Lab Routine Encounter for supervision of other normal in third trimester Expected: 12/23/2023, Expires: 01/22/2025 US BREAST AXILLA RIGHT Medical Imaging Routine Axillary lump, right Expected: 12/23/2023, Expires: 01/22/2025 Health Maintenance Due Date Last Done Comments [...] for supervision of other normal in third trimester- Primary Axillary lump, right documented in this encounter Additional Health Concerns Active Problems Noted Date Diagnosed Date OB Reminders 12/01/2023 documented as of this encounter Care Teams Biological Sciences Instructor Relationship Specialty Start Date End Date Natalia Guardado MD [address] [place] [address] PCP - General Family Medicine 11/30/23 documented as of this encounter
--- OUTSIDE RECORDS SUMMARY | 2024-02-22 02:32 | External Medical Summary ---
Author Name Unknown Address Unknown Organization K01:[facility] [place] - [address] [place] [address] Laboratory Report Ordering Provider Test Date Status DIGNA ENAMORADO 12/23/2023 15:32:48 Final Observation Date Value Abnormality Reference (Units ) Status Treponema pallidum Ab [Presence] in Serum by Immunoassay 12/23/2023 15:32:48 Nonreactive Nonreactive Final No serologic evidence of syp hilis. No additional testing clinicially indicated at this time. Consider repeat testing in 2-4 weeks if acute or primary syphilis is suspected. Performing Location [facility] [place] - [address] [address]
--- OUTSIDE RECORDS SUMMARY | 2024-02-22 02:32 | External Medical Summary ---
Author Name Unknown Address Unknown Organization K0G:LABORATORY [place] [facility] - [address] [place] [address] Laboratory Report Ordering Provider Test Date Status DIGNA ENAMORADO 12/27/2023 11:21:20 Final Observation Date Value Abnormality Reference (Units ) Status Glucose, 2-hr post glucose challenge 12/27/2023 11:21:20 120 70-154 (mg/dL) Final Performing Location LABORATORY [facility] [place] [facility] - [address] [place] [address]
--- OUTSIDE RECORDS SUMMARY | 2024-02-22 02:32 | External Medical Summary | Continuity of Care Document ---
Author Name Unknown Organization [address] Address [address] [place], [place] [address] [place], [place] [id number] Care Team Providers Care Refrigeration Person Name Role Phone Flavia Combs Primary Care Physician [phone] Encounter [facility] [id number] Date(s): 12/13/23 - 12/13/[address] [facility] [address] [facility], [address] [place] [address] [phone] Encounter Diagnosis Body mass index [BMI] 33.0-33.9, adult(Discharge Diagnosis) - 12/13/23 (Discharge Diagnosis) - 12/13/23 Establishing care with new doctor, encounter for(Discharge Diagnosis) - 12/13/23 Discharge Disposition: Home or Self Care Attending Physician: KESHAWN Combs Katy Marie Referring Physician: KESHAWN Combs Katy Marie Allergies, Adverse Reactions, Alerts No Known Allergies Assessment and Plan Extracted from: Title:Office Visit Note Author:KESHAWN Combs Kat y Marie Date:12/13/23 1. Problem isChronic - stable/controlled Goal:maintenance Data:_ Plan: discussed care, local options for OB care. vitamins discussedlocal hospital for acute concerns 2.Establishing care with new doctor, encounter for RTC as needed Patient verbalizes understanding and agrees with raegan well asreturn precautions. Medications PreNata oral tablet, chewable Start: 12/13/23 8:41:00 AM EDT Start Date: 12/13/23 Status: Ordered Mental Status 12/13/23 Barriers to Learning one year None evide nt Mandatory Health Literacy Documentation Yes Health Literacy Communication Barriers N ever Primary Language Setswana Problem List Condition Confirmation Course Effective Dates Status Health St atus Informant Anxiety Confirmed Active Depression Confirmed Active Migraines Confirmed Active Sleep apnea Confirmed Active Tinnitus Confirmed Active Diagnosis Diagnosis Type Effective Dates Health Status Clinical Service Informant Body mass index [BMI] 33.0-33.9, adult Discharge Diagnosis 12/13/23 Non-Specified Discharge Diagnosis 12/13/23 Non-Specified Establishing care with new doctor, encounter for Discharge Diagnosis 12/13/23 Non-Specified Vital Signs Most recent to oldest [Reference Range]: 1 Height 161.6 cm (12/13/23 8:42 AM) Patient Weight 87.8 kg (12/13/23 8:42 AM) Body Mass Index 33.62 kg/m2 (12/13/23 8:42 AM) Temperature [36.5-37.9 DegC] 36.0 DegC *LOW* (12/13/23 8:42 AM) Heart Rate 120 bpm (12/13/23 8:42 AM) Respiratory Rate 16 br/min (12/13/23 8:42 AM) Blood Pressure 128/64mmHg (12/13/23 8:42 AM) Cuff Pulse Pressure 64 mmHg (12/13/23 8:42 AM) Social History Social History Type Response Smoking Status Never smoked cigaret francisca Sex Sex Representation Female (finding) FCM Outpt Note * KESHAWN Combs, Flavia Meredith: PERFORM Event Display: FCM Outpt Note Authored Date: [id number] Chief Complaint establish care and referral for gynology History of Present Illness Moved here in September. Currently 29 weeks, 4 days . Has been getting care - last apptin September in [place]. Her first she was dilatingearly and was on bed rest. Last night felt like she was having contractions. 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 Review of Systems A total of 10 systems were reviewed. Pertinent positive and negatives addressed in HPI, all other findings are negative. Physical Exam Vitals & Measurements T:36.0C HR:120(Monitored) RR:16 BP:128/64 SpO2:97% HT:161.6cm WT:87.800kg(Dosing) WT:87.8kg BMI:33.62 PHQ2 Data(Data Documented on:12/13/2023 08:42) Emotional health assessment NEGATIVE Constitutional: Alert and oriented, No acute distress, Well-appearing, Normal mood and affect Respiratory: Lung sounds are clear, equal chest rise and fall with breathing, no pursed lip breathing Cardiovascular: Heart sounds regular rate and rhythm, without gallop or murmur, no edema HEENT: Normocephalic, atraumatic, conjunctiva are clear, sclera non-icteric Skin: Warm, pink, dry, intact Assessment/Plan 1. Problem isChronic - stable/controlled Goal:maintenance Data:_ Plan: discussed care, local options for OB care. vitamins discussedlocal hospital for acute concerns 2.Establishing care with new doctor, encounter for RTC as needed Patient verbalizes understanding and agrees with raegan well asreturn precautions. Attestation I attest that I have spent40 minutes in care and coordination of this patient. This is inclusive of: previsit: chart review and preparation |[id number]: obtaining HPI, PE, discussing Assessment and Plan, and other pertinent discussions/decisionsr/t care | postvisit: coordination of care, orders, and documentation/paperwork The abovetimedoes not include any procedure time. Problem List/Past Medical History Ongoing Anxiety Depression Migraines Sleep apnea Tinnitus Medications multivitamin, (PreNata oral tablet, chewable) Allergies NKA Social History Smoking Status Never smoked cigarettes Recommendations Health Maintenance Pending(in the next year) OverDue Adult Influenza Vaccine due08/29/23and every 1year Due Adult Folic Acid Supplementation due12/13/23and every 3year Satisfied(in the past 1 year) There are no satisfied recommendations within the defined date range Electronic Signature on File Electronically Reviewed/Signed by: KESHAWN Araujo Author Signature Dt/Tm:12/13/2023 09:43 AM Department of Family Medicine [facility] Patient Care team information Care Team Personnel Name: KESHAWN Combs Katy Marie Position: Nurse Pract - Family Med Member Role: Primary Care Provider Address: [address] [place] [address]"
--- OUTSIDE RECORDS SUMMARY | 2024-02-22 02:32 | External Medical Summary ---
Author Name Unknown Address Unknown Organization K01:[facility] [address] [place] [address] Laboratory Report Ordering Provider Test Date Status DIGNA ENAMORADO 12/23/2023 15:32:48 Final Observation Date Value Abnormality Reference (Units ) Status Ferritin 12/23/2023 15:32:48 8 Below low normal 13- 150 (ng/mL) Final Performing Location [facility] [address] [place] [address]
--- OUTSIDE RECORDS SUMMARY | 2024-02-22 02:32 | External Medical Summary | Summary of Care ---
Author Name Unknown Organization [facility] Address [address] [address] Phone [phone] Care Team Providers Care Paid Intern Name Role Phone Natalia Guardado MD Primary Care Provider [phone] Encounter Details Date Type Department Care Team (Late st Contact Info) Description 12/27/2023 Telephone Gynecology/Obstetric[address] [phone] Lynn Pa PA-C [address] [place] [address] Allergies No known active allergiesdocumented as of [...] encounter Miscellaneous Notes * Telephone Encounter - Amy Haney LPN - 12/27/2023 8:06 AM EDT Pt called in to check and make sure the 3 hour glucose test was placed for her to have this complete. Advised this order was in and she would have to call lab to schedule appointment time to have this complete. Lab number for [facility]rid given. Amy Haney LPN documented in this encounter Plan of Treatment Upcoming Encounters Date Type Department Care Team (Late st Contact Info) Description 12/27/2023 10:30 AM EDT Imaging Radiology [facility] [address] [place] [address] 01/05/2024 4:30 PM EST Office Visit Gynecology/Obstetrics [facility] [address] [place] [address] Lynn Pa PA-C [address] [place] [id number] Health Maintenance Due Date Last Done Comments [...] documented as of this encounter Care Teams Paid Intern Relationship Specialty Start Date End Date Natalia Guardado MD [address] [place] [address] PCP - General Family Medicine 11/30/23 documented as of this encounter
[2024-02-22 07:12] LABS: Hematocrit (blood only) 32.9 % (37.0-47.0); Hemoglobin 10.6 g/dl (12.0-16.0); Mean Corpuscular Hemoglobin 26.4 pg (25.0-34.0); Mean Corpuscular Hgb Conc 32.2 g/dL (32.0-36.0); Mean Platelet Volume 10.1 fL (9.4-12.4); Platelet Count 261 K/uL (130-400); RDW Coefficient of Variation 24.6 % (11.5-14.5); RDW Standard Deviation 70.6 fL (36.4-46.3); Red Blood Count 4.01 M/uL (4.20-5.40); White Blood Count 15.07 K/ul (4.8-10.8)
[2024-02-22] MEDS: DOCUSATE SODIUM 100 MG CAP PO SCH (08:00)
[2024-02-22] MEDS: PRENATAL VITAMIN 1 TAB PO SCH (08:00)
--- NOTE | 2024-02-22 08:32 | Obstetrical Progress Note ---
Date of Service February 22, 2024 Subjective Ambulation: ambulating normally Voiding: no voiding problems Passing Gas:: Yes Diet Tolerance:: regular diet Lochia:: Small Feeding Type:: breast feeding Current Pain Level(1-10): 0 doing well. wants to go home Physical Exam Constitutional WD/WN, vitals as above Gastrointestinal (Abdomen) Inspection/Auscultation: abdomen normal to inspection abdomen soft and non-tender. fundus firm below U. Musculoskeletal Extremities: extremities normal to inspection Skin no rashes, warm and dry Neurologic patellar DTR's 2+ bilat, sensation intact Psychiatric A+Ox3, euthymic affect Results & Data Vital Signs (Past 12 Hours) Vital Signs Temp Pulse Pulse Resp BP BP Pulse Ox 02/22/24 07:47 36.6 C 100 H 18 120/64 100 02/22/24 03:10 36.9 C 97 H 18 109/74 100 02/22/24 00:30 36.7 C 94 H 18 130/76 98 02/22/24 00:28 94 H 130/76 02/22/24 00:21 92 H 127/73 02/22/24 00:06 110 H 122/65 02/21/24 23:52 95 H 02/21/24 23:52 125/68 02/21/24 23:21 90 02/21/24 23:21 127/69 02/21/24 23:06 92 H 02/21/24 23:06 128/76 02/21/24 22:51 96 H 02/21/24 22:51 130/79 02/21/24 22:36 98 H 02/21/24 22:36 131/72 02/21/24 22:21 105 H 02/21/24 22:21 118/69 02/21/24 20:38 110 H 135/78 O2 Del Method 02/22/24 07:47 Room Air 02/22/24 03:10 Room Air 02/22/24 00:30 Room Air 02/22/24 00:28 02/22/24 00:21 02/22/24 00:06 02/21/24 23:52 02/21/24 23:52 02/21/24 23:21 02/21/24 23:21 02/21/24 23:06 02/21/24 23:06 02/21/24 22:51 02/21/24 22:51 02/21/24 22:36 02/21/24 22:36 02/21/24 22:21 02/21/24 22:21 02/21/24 20:38 Laboratory Results 02/21/24 02/22/24 21:32 06:46 WBC 11.75 H 15.07 H RBC 4.75 4.01 L Hgb 12.4 10.6 L Hct 38.6 32.9 L MCV 81.3 82.0 MCH 26.1 26.4 MCHC 32.1 32.2 RDW Std Deviation 69.9 H 70.6 H RDW Coeff of [place] 25.0 H 24.6 H Plt Count 294 261 MPV 10.0 10.1 Treponema pallidum Ab Negative
[2024-02-22 15:37] VITALS: BP 117/76; PULSE 90; TEMP 97.9; O2SAT 99
[2024-02-22] MEDS: bisacodyL 5 MG TABEC PO SCH (20:17)
[2024-02-23] MEDS ORDERED: bisacodyL 10 MG SUPP PR PRN
== END 2024-02-22 20:30 | disposition home or self-care (01) | DRG 807 ==
LOC: OPB 20:07 → 4S1 20:11 → 4E2 02-22 01:12